=== PATIENT | male | born 1955 | race Caucasian/White ===

== ENCOUNTER 2017-05-08 10:13 | Emergency (ER) | payer BC, MEDICARE ==
[2017-05-08] MEDS ORDERED: Ondansetron 4 MG/2 ML SDV IVPUSH ONE (11:00)
[2017-05-08] MEDS ORDERED: Morphine 4 MG/ML Syringe IVPUSH ONE ×2 (11:00→13:51)
[2017-05-08] MEDS ORDERED: Sodium Chloride 0.9% 1,000 ML IV SCH (11:15)
--- NOTE | 2017-05-08 11:27 | EDM.PDOC ---
ED HPI GENERAL MEDICAL PROBLEM - General Stated Complaint: BACK PAIN Time Seen by Provider: 05/08/17 10:13 Source of Information: Reports: Patient, Family History Limitations: Reports: No Limitations - History of Present Illness INITIAL COMMENTS - FREE TEXT/NARRATIVE: 61 years old w m with chronic low back pain, came to the ed due to worsening of his low back pain. No stool or urine incontinence. No new trauma. No N/V/D or other acute medical issues at this time. Onset: Today Onset Date: 05/08/17 Onset Time: 05:00 Duration: Chronic, Getting Worse, Intermittent (acute) Location: Reports: Back Quality: Reports: Burning, Dull, Pressure, Throbbing Severity: Moderate Improves with: Reports: Cold Therapy, Immobilization Worsens with: Reports: Movement Associated Symptoms: Reports: No Other Symptoms back Pain Score (Numeric/FACES): 8 - Related Data Allergies Allergy/AdvReac Type Severity Reaction Status Date / Time amoxicillin [Amoxicillin] Allergy Diarrhea Verified 05/08/17 12:31 levofloxacin [From Levaquin] Allergy Headache Verified 05/08/17 12:31 NSAIDS (Non-Steroidal Allergy Cannot Verified 05/08/17 12:31 Anti-Inflamma Remember Home Meds: Home Meds Citalopram Hydrobromide [Celexa] 40 mg PO DAILY 08/18/13 [History] Metoprolol Tartrate [Lopressor] 100 mg PO BID 08/18/13 [History] Multivitamin [Multivitamins] 1 cap PO DAILY 08/18/13 [History] Zolpidem [Ambien] 10 mg PO BEDTIME PRN 08/18/13 [History] amLODIPine [Norvasc] 10 mg PO DAILY 08/18/13 [History] predniSONE [Prednisone] 5 mg PO DAILY 08/18/13 [History] Gabapentin [Neurontin] 600 mg PO TID 06/18/14 [History] Pantoprazole [ProTONIX] 40 mg PO DAILY 06/18/14 [History] Acetaminophen 650 mg PO Q4H PRN 04/10/15 [History] Albuterol Sulfate [Albuterol Sulfate HFA] 2 puff INH Q4H PRN 04/10/15 [History] Alendronate [Fosamax] 70 mg PO Q7D@0600 04/10/15 [History] Calcium Carbonate/Vitamin D3 [Calcium 500-Vit D3 200 Tablet] 1 tab PO BID [History] Gemfibrozil 600 mg PO BID 04/10/15 [History] Loperamide [Imodium] 4 mg PO TID PRN 04/10/15 [History] Potassium Chloride 20 meq PO DAILY 04/10/15 [History] Simvastatin [Zocor] 10 mg PO BEDTIME 04/10/15 [History] Tacrolimus [Prograf] 1 mg PO BEDTIME 04/10/15 [History] Tacrolimus [Prograf] 1.5 mg PO PCBREAKFAST 04/10/15 [History] Dexamethasone 4 mg PO Q6H #18 tab 05/08/17 [Rx] oxyCODONE HCl/Acetaminophen [Percocet 5-325 mg Tablet] 1 each PO Q6HR PRN #20 tablet 05/08/17 [Rx] oxyCODONE HCl/Acetaminophen [Percocet 7.5-325 mg Tablet] 1 each PO Q6HR PRN #20 tablet 05/08/17 [Rx] Past Medical History Other HEENT History: wears contacts Other Respiratory History: "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 Other Gastrointestinal History: upper gi bleed bleeding ulcer while in [place] Other Musculoskeletal History: partial knee in [place] 04/06/15 Other Hematologic History: port in left chest present since 2002 is flushed once a month port was not used for surgery Other Oncologic History: 2008 in remission in - Past Surgical History Other Male Surgeries/Procedures: kidney transplant in 2002 Other Musculoskeletal Surgeries/Procedures:: 04/06/15/ pt had partial knee replacement done to right knee Social & Family History - Tobacco Use Smoking Status *Q: Never Smoker Years of Tobacco use: 28 Used Tobacco, but Quit: Yes Month Tobacco Last Used: 10/2002 Second Hand Smoke Exposure: No - Alcohol Use Days Per Week of Alcohol Use: 3 Number of Drinks Per Day: 1 Total Drinks Per Week: 3 - Recreational Drug Use Recreational Drug Use: No ED ROS GENERAL - Review of Systems Review Of Systems: See Below Constitutional: Reports: No Symptoms HEENT: Reports: No Symptoms Respiratory: Reports: No Symptoms Cardiovascular: Reports: No Symptoms Endocrine: Reports: No Symptoms GI/Abdominal: Reports: No Symptoms : Reports: No Symptoms Musculoskeletal: Reports: Back Pain Skin: Reports: No Symptoms Neurological: Reports: No Symptoms Psychiatric: Reports: No Symptoms Hematologic/Lymphatic: Reports: No Symptoms Immunologic: Reports: No Symptoms ED EXAM, NEURO - Physical Exam Exam: See Below Exam Limited By: Physical Impairment General Appearance: Alert, WD/WN, Moderate Distress Eye Exam: Bilateral Eye: Normal Inspection Ears: Normal External Exam, Normal Canal Nose: Normal Inspection, Normal Mucosa Throat/Mouth: Normal Inspection, Normal Lips Head Exam: Atraumatic, Normocephalic Neck: Normal Inspection, Supple, Non-Tender, Full Range of Motion Respiratory/Chest: No Respiratory Distress, Lungs Clear, Normal Breath Sounds, No Accessory Muscle Use Cardiovascular: Normal Peripheral Pulses, Regular Rate, Rhythm, No Edema, No Gallop GI/Abdominal: Normal Bowel Sounds, Soft, Non-Tender, No Organomegaly (Male) Exam: Deferred Rectal (Males) Exam: Deferred Neurological: Alert, Normal Mood/Affect, Normal Dorsiflexion, CN II-XII Intact, Straight Leg Raise (L), Straight Leg Raise (R) Back Exam: Normal Inspection, Muscle Spasm, Paraspinal Tenderness, Vertebral Tenderness Extremities: Normal Inspection, Normal Range of Motion, Non-Tender, No Pedal Edema Psychiatric: Normal Affect, Normal Mood Skin Exam: Warm, Dry, Intact, Normal Color, No Rash Course - Vital Signs Text/Narrative:: 61 years old w m with chronic low back pain, came to the ed due to worsening of his low back pain. No stool or urine incontinence. No new trauma. No N/V/D or other acute medical issues at this time.\\ PE: Acute worsening of chronic low back pain. Imaging: MRI lumbar spine: Chronich deg l spine with L4/L5 stenosis. Imaging: Low back pain with L4/L5 stenosis Tx: & mg MS, Ice, Solu Medrol and percost Consultation: Dr. Dunaway, Neurosurgeon, [facility]: Dexametason Taper, Percocet, ICE and follow up uin 1 week Reexam: Improved Plan: D/C with instructions Last Recorded V/S: Last Vital Signs Temp 36.3 C 05/08/17 14:19 Pulse 71 05/08/17 17:30 Resp 16 05/08/17 14:19 BP 164/100 H 05/08/17 17:30 Pulse Ox 97 05/08/17 14:19 - Orders/Labs/Meds Orders: Active Orders 24 hr Category Date Time Status Strain Urine [RC] ASDIRECTED Care 05/08/17 14:31 Active Lumbar Spine Comp wo Cont [MR] Stat Exams 05/08/17 11:22 Taken Saline Lock Insert [OM.PC] Routine Oth 05/08/17 15:20 Ordered Labs: Laboratory Tests 05/08/17 Range/Units 13:50 Urine Color Yellow (YELLOW) Urine Appearance Clear (CLEAR) Urine pH 6.0 (5.0-6.5) Ur Specific Perry 1.015 (1.010-1.025) Urine Protein Negative (NEGATIVE) mg/dL Urine Glucose (UA) Normal (NEGATIVE) mg/dL Urine Ketones Negative (NEGATIVE) mg/dL Urine Occult Blood Negative (NEGATIVE) Urine Nitrite Negative (NEGATIVE) Urine Bilirubin Negative (NEGATIVE) Urine Urobilinogen Normal (NEGATIVE) mg/dL Ur Leukocyte Esterase Negative (NEGATIVE) Urine RBC 0-5 (0) Urine WBC 0-5 (0) Ur Squamous Epith Cells Occasional (NS,R,O) Urine Bacteria Rare H (NS) Meds: Medications Discontinued Medications Generic Name Dose Route Start Last Admin Trade Name Pardeepq PRN Reason Stop Dose Admin Dexamethasone 4 mg 05/08/17 17:14 05/08/17 17:24 Dexamethasone PO 05/08/17 17:15 4 mg ONETIME ONE Administration Sodium Chloride 1,000 mls @ 125 mls/hr 05/08/17 11:15 Normal Saline IV ASDIRECTED MEGAN Methylprednisolone Sodium Succinate 125 mg 05/08/17 15:05 05/08/17 15:39 Solu-Medrol IVPUSH 05/08/17 15:06 125 mg ONETIME ONE Administration Morphine Sulfate 4 mg 05/08/17 11:00 05/08/17 11:08 Morphine IVPUSH 05/08/17 11:01 4 mg ONETIME ONE Administration Morphine Sulfate 4 mg 05/08/17 13:51 05/08/17 14:55 Morphine IVPUSH 05/08/17 13:52 Not Given ONETIME ONE Morphine Sulfate 3 mg 05/08/17 13:59 05/08/17 14:13 Morphine IM 05/08/17 14:00 3 mg ONETIME STA Administration Ondansetron HCl 8 mg 05/08/17 11:00 05/08/17 11:08 Zofran IVPUSH 05/08/17 11:01 8 mg ONETIME ONE Administration Oxycodone/Acetaminophen 1 tab 05/08/17 17:13 05/08/17 17:25 Percocet 325-5 Mg PO 05/08/17 17:14 1 tab ONETIME ONE Administration Sodium Chloride 10 ml 05/08/17 14:16 05/08/17 14:18 Saline Flush FLUSH 10 ml ASDIRECTED PRN Administration flush Sodium Chloride 10 ml 05/08/17 15:20 05/08/17 15:40 Saline Flush FLUSH 10 ml ASDIRECTED PRN Administration Keep Vein Open Departure - Departure Time of Disposition: 17:16 Disposition: Home, Self-Care 01 Condition: Good Clinical Impression: Chronic low back pain with bilateral sciatica Qualifiers: Back pain laterality: bilateral Qualified Code(s): M54.42 - Lumbago with sciatica, left side - Discharge Information Prescriptions: oxyCODONE HCl/Acetaminophen [Percocet 7.5-325 mg Tablet] 1 each PO Q6HR PRN #20 tablet PRN Reason: severe pain oxyCODONE HCl/Acetaminophen [Percocet 5-325 mg Tablet] 1 each PO Q6HR PRN #20 tablet PRN Reason: severe pain Dexamethasone 4 mg PO Q6H #18 tab Referrals: Rico Liz MD [Primary Care Provider] - Forms: ED Department Discharge, ED Return to Work/School Form Additional Instructions: Please apply ice to lower back, please take the Dexametasone, Percocet as recommended, please apply ice to lower back, please f/u with your Neurosurgeon in 1 week, please come back if your symptoms get worse acutely. - My Orders Last 24 Hours: My Active Orders 05/08/17 11:22 Lumbar Spine Comp wo Cont [MR] Stat 05/08/17 14:31 Strain Urine [RC] ASDIRECTED 05/08/17 15:20 Saline Lock Insert [OM.PC] Routine - Assessment/Plan Last 24 Hours: My Active Orders 05/08/17 11:22 Lumbar Spine Comp wo Cont [MR] Stat 05/08/17 14:31 Strain Urine [RC] ASDIRECTED 05/08/17 15:20 Saline Lock Insert [OM.PC] Routine
[2017-05-08] MEDS ORDERED: Morphine 4 MG/ML Syringe IM STA (13:59)
[2017-05-08] MEDS ORDERED: Sodium Chloride 0.9% 10 ML Syringe FLUSH PRN ×2 (14:16→15:20)
[2017-05-08] MEDS ORDERED: methylPREDNISolone Sodium Succinate 125 MG/2 ML SDV IVPUSH ONE (15:05)
[2017-05-08] MEDS ORDERED: Acetaminophen/oxyCODONE 325-5 MG Tab PO ONE (17:13)
[2017-05-08] MEDS ORDERED: Dexamethasone 4 MG Tab PO ONE (17:14)
[2017-05-08 17:35] VITALS: BP 164/100
== END 2017-05-08 17:30 | disposition home or self-care (01) ==
LOC: FB.ED 10:13
DX: M54.42 Lumbago with sciatica, left side (principal); Z88.1 Allergy status to other antibiotic agents; Z88.8 Allergy status to other drugs, medicaments and biological substances; Z79.899 Other long term (current) drug therapy; Z96.659 Presence of unspecified artificial knee joint
CPT/HCPCS: 72148; 81001; 96374; 96375; 96376; 99285; A9270; J2270; J2405; J2930; J7050; J8540; 99284

== ENCOUNTER 2018-03-09 06:48 | Day surgery (SDC) | payer BC, MEDICARE ==
[2018-03-09] MEDS ORDERED: Lactated Ringers 1,000 ML IV SCH (07:15)
[2018-03-09] MEDS ORDERED: Propofol 200 MG/20 ML SDV IV ONE (08:45)
[2018-03-09] MEDS ORDERED: Glucagon,Human Recombinant 1 MG Vial IVPUSH ONE (08:45)
--- NOTE | 2018-03-09 09:17 | PCM.OPNOTE ---
- General Post-Op/Procedure Note Date of Surgery/Procedure: 03/09/18 Operative Procedure(s): c scope with bx Findings: transverse x2, descending and rectal polyps Pre Op Diagnosis: hx of colon polyps Post-Op Diagnosis: transverse x2, descending and rectal polyps Anesthesia Technique: MAC Primary Surgeon: Crow Culp Anesthesia Provider: Erich Mcmanus Pathology: transverse x2, descending and rectal polyps Complications: None Condition: Good Free Text/Narrative:: see dictation #[id number]
--- NOTE | 2018-03-09 09:50 | PREOP ---
ADMISSION DATE: 03/09/2018 CHIEF COMPLAINT: History of adenomatous polyps. HISTORY OF PRESENT ILLNESS: This is a gentleman who presents for a followup colonoscopy. Last scope was 5 years ago. He had some adenomatous polyps removed. He is now due for a followup exam. He is currently without complaints. Denies any history of change in bowel habits, weight loss, etc. SOCIAL HISTORY: The patient did smoke, stopped in 2002. Does dip on occasion. Does have approximately 4 cans of beer a week. FAMILY HISTORY: Significant for heart disease, hypertension, and dementia. PAST MEDICAL HISTORY: Significant for the following history of deep vein thrombosis, breast mass, history of diarrhea, peripheral neuropathy, renal failure. He is a kidney transplant recipient. He has a history of lumbar degenerative disk disease, microscopic polyangiitis, myopia, cataract, post transplant lymphoproliferative disorder. MEDICATIONS: Include: 1. Fosamax 70 mg weekly. 2. Zocor 10 mg at bedtime. 3. Multivitamin at night. 4. Calcium carbonate one tablet 2 times a day. 5. Vitamin D. 6. In addition, he takes Protonix 40 mg daily. 7. Prednisone 5 mg daily. 8. Prograf 1 mg b.i.d. 9. Celexa 40 mg once a day. 10.Lopressor 100 mg as needed. 11.Norvasc 1 daily. 12.Imodium as needed. 13.Ambien 10 mg. 14.Lopid 600 mg. 15.Neurontin 300 mg. 16.Catapres 0.1 mg. 17.Flexeril 10 mg. ALLERGIES: He is allergic to amoxicillin, Levaquin, and NSAIDs. PAST SURGICAL HISTORY: Significant for AV fistula, right knee arthroscopy, bronchoscopy x4. He is status post inguinal hernia repair, left shoulder replacement, kidney transplant, exploratory laparotomy, thoracotomy, and a right total knee. REVIEW OF SYSTEMS: He denies any cultural, HEENT, respiratory, cardiovascular, gastrointestinal. PHYSICAL EXAMINATION: GENERAL: This is a well-developed, well-nourished white male, appearing in no acute distress. HEENT: Grossly within normal limits. LUNGS: Clear to auscultation. HEART: Had a regular rate and rhythm. ABDOMEN: Soft, nontender. ASSESSMENT: Personal history of colon polyps. PLAN: Colonoscopy. Procedure and risks explained to the patient to include bleeding, infection, possible perforation. The patient expresses understanding and asked us to proceed. /[id number] /SILVIAL
[2018-03-09] MEDS ORDERED: Heparin Sodium 10 Units/ML 5 ML Syringe FLUSH PRN (09:52)
[2018-03-09] MEDS ORDERED: Sodium Chloride 0.9% 10 ML Syringe FLUSH PRN (09:54)
--- NOTE | 2018-03-09 09:58 | OR ---
DATE OF OPERATION: 03/09/2018 SURGEON: Crow Culp MD PROCEDURES PERFORMED: Colonoscopy with cold forceps biopsy. PREOPERATIVE DIAGNOSIS: Personal history of colon polyps. POSTOPERATIVE DIAGNOSIS: Transverse colon polyp x2, descending colon polyp, and rectal polyp. INDICATIONS FOR PROCEDURE: This is a 62-year-old white male who presents for a colonoscopy. He was offered and accepted same. DESCRIPTION OF OPERATION: After an excellent IV sedation was administered, digital rectal exam was performed. No marked abnormality was noted. The flexible colonoscope was inserted and advanced to the cecum. The prep was okay. There were some areas that we had to irrigate, but we were able to get a good view. The following findings were noted. Ascending colon was unremarkable. Transverse colon, 2 small polyps, biopsied and submitted in one container. Descending colon, single polyp, biopsied and submitted in one container. Sigmoid, unremarkable. Rectum, small polyp, biopsied and submitted in one container. Colon was deflated as the scope was removed. The patient tolerated the procedure well. Results by letter. /[id number] LOBO/SERJIO SANCHEZ
[2018-03-09 12:13] VITALS: BP 135/89
== END 2018-03-09 10:36 | disposition home or self-care (01) ==
LOC: FB.SDS 06:48
PROVIDERS: ATTEND Surgery
DX: Z12.11 Encounter for screening for malignant neoplasm of colon (principal); D12.3 Benign neoplasm of transverse colon; D12.4 Benign neoplasm of descending colon; K62.1 Rectal polyp; N19 Unspecified kidney failure; Z94.0 Kidney transplant status; E78.5 Hyperlipidemia, unspecified; Z87.891 Personal history of nicotine dependence; Z86.010 Personal history of colon polyps; Z86.711 Personal history of pulmonary embolism; Z79.899 Other long term (current) drug therapy; Z88.0 Allergy status to penicillin; Z88.6 Allergy status to analgesic agent; Z88.1 Allergy status to other antibiotic agents
CPT/HCPCS: 00812; 45380; 88305; J1610; J1642; J2704; J7050; J7120

== ENCOUNTER 2021-02-19 12:42 | Inpatient (IN) | payer BC, MEDICARE ==
[2021-02-19 14:31] LABS: PH VENOUS,POC 7.37 pH Units (7.32-7.43)
[2021-02-19 14:32] LABS: BASE EXCESS VENOUS,POC 2 mmol/L (-2-3); HCO3 VENOUS,POC 27 mmol/L (21-29); PCO2 VENOUS,POC 46 mmHg (41-51)
--- NOTE | 2021-02-19 15:32 | EDM.PDOC ---
ED HPI GENERAL MEDICAL PROBLEM - General Chief Complaint: Drug or Alcohol Abuse Stated Complaint: ??? 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 h/o double pneumonia 2002 with scarring of lungs, went to [place], has been on O2 2 l/min at night every since, rarely uses oxygen during the day went to walk-in, noted to have PO 88-89% on RA which was new, HR 98-105, BP up 20 points given 1 liter NS, then send to ED for further w/u and admission denies prior CV issues, no MIs, no stents, however BMI has been inc'd in past CxR 2v is neg on prelim ED read BP inc'd here vital signs have remained stable, states he wants detox pt with PO 96% on 2 l/min here, says he feels better on O2, PO 92% here in ED on RA - Related Data Allergies Allergy/AdvReac Type Severity Reaction Status Date / Time amoxicillin [Amoxicillin] AdvReac Diarrhea Verified 02/19/21 14:59 levofloxacin [From Levaquin] AdvReac Headache Verified 03/09/18 07:49 NSAIDS (Non-Steroidal AdvReac Cannot Verified 02/19/21 14:59 Anti-Inflamma Remember Home Meds: Home Meds Citalopram Hydrobromide [Celexa] 40 mg PO DAILY 08/18/13 [History] Metoprolol Tartrate [Lopressor] 100 mg PO BID 08/18/13 [History] Multivitamin [Multivitamins] 1 cap PO DAILY 08/18/13 [History] Zolpidem [Ambien] 10 mg PO BEDTIME PRN 08/18/13 [History] amLODIPine [Norvasc] 10 mg PO DAILY 08/18/13 [History] predniSONE [Prednisone] 5 mg PO DAILY 11/10/13 [History] Gabapentin [Neurontin] 600 mg PO TID 06/18/14 [History] Pantoprazole [ProTONIX] 40 mg PO DAILY 06/18/14 [History] Acetaminophen 650 mg PO Q4H PRN 04/10/15 [History] Albuterol Sulfate [Albuterol Sulfate HFA] 2 puff INH Q4H PRN 04/10/15 [History] Alendronate [Fosamax] 70 mg PO Q7D@0600 04/10/15 [History] Calcium Carbonate/Vitamin D3 [Calcium 500-Vit D3 200 Tablet] 1 tab PO BID 04/10/15 [History] Gemfibrozil 600 mg PO BIDAC 04/10/15 [History] Loperamide [Imodium] 4 mg PO TID PRN 04/10/15 [History] Potassium Chloride 20 meq PO DAILY 04/10/15 [History] Simvastatin [Zocor] 10 mg PO BEDTIME 04/10/15 [History] Tacrolimus [Prograf] 1 mg PO BID 04/10/15 [History] cloNIDine [Catapres] 0.1 mg PO TID 01/15/18 [History] metroNIDAZOLE [Metrogel] 1 applic TP BID PRN 01/15/18 [History] Cholecalciferol (Vitamin D3) [Vitamin D3] 1,000 units PO DAILY 03/08/18 [Hist ory] Cyclobenzaprine [Flexeril] 10 mg PO BEDTIME 02/19/21 [History] Fluticasone Propionate [Flonase] 50 mcg NS 02/19/21 [History] fluorouraciL [Efudex 5% Cream] 40 gm .XX ASDIRECTED 02/19/21 [History] traMADol [Ultram] 50 mg PO Q6H PRN 02/19/21 [History] Past Medical History HEENT History: Reports: Cataract, Impaired Vision Other HEENT History: wears contacts. CHRIONIC DRY EYES, BILATERAL CATARACT, ORBITAL LESION, PINGUECULA Cardiovascular History: Reports: Aneurysm, Arrhythmia, Blood Clots/VTE/DVT, High Cholesterol, Hypertension, Other (See Below) Other Cardiovascular History: ARTERITIS. 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 ELEVATED DIAPHRAM Other Gastrointestinal History: upper gi bleed bleeding ulcer while in [place] Genitourinary History: Reports: Renal Disease Other Genitourinary History: KIDNEY TRANSPLANT Musculoskeletal History: Reports: Arthritis, Back Pain, Chronic, Fracture, Other (See Below) Other Musculoskeletal History: partial knee in [place] 04/06/15 RIGHT. LUMBAR DEGENERATIVE DISK DISEASE Neurological History: Reports: Headaches, Chronic, Neuropathy, Peripheral Psychiatric History: Reports: Depression Hematologic History: Reports: Other (See Below) Other Hematologic History: port in left chest present since 2002 is flushed once a month port was not used for surgery. 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 Oncologic (Cancer) History: Reports: Non-Hodgkin's Lymphoma Other Oncologic History: 2008 in remission in - Past Surgical History Respiratory Surgical History: Reports: Thoracotomy Other Respiratory Surgeries/Procedures: BROCHOSCOPIES X4 GI Surgical History: Reports: Hernia Repair/Other Other GI Surgeries/Procedures: EXPLORATORY LAPAROTOMY 2006, 2002 AND 2003 HERNIORRAPHIES Other Male Surgeries/Procedures: kidney transplant in 2002 Neurological Surgical History: Reports: Thoracic Spine Musculoskeletal Surgical History: Reports: Arthroscopic Knee, Knee Replacement, Shoulder Surgery, Other (See Below) Other Musculoskeletal Surgeries/Procedures:: 04/06/15/ pt had partial knee replacement done to right knee. LEFT KNEE ARTHROSCOPY 2007 RIGHT IN 2012. LEFT SHOULDER REPLACEMENT 2009. THROACIC VERTEBRAL FX 04/2012, BACK SURGERY 2006 Social & Family History - Caffeine Use Caffeine Use: Reports: Soda ED ROS GENERAL - Review of Systems Review Of Systems: See Below Constitutional: Reports: No Symptoms HEENT: Reports: No Symptoms Respiratory: Reports: No Symptoms Cardiovascular: Reports: No Symptoms Endocrine: Reports: No Symptoms GI/Abdominal: Reports: No Symptoms : Reports: No Symptoms Musculoskeletal: Reports: No Symptoms Skin: Reports: No Symptoms Neurological: Reports: Weakness, Other (shakes) Psychiatric: Reports: No Symptoms Hematologic/Lymphatic: Reports: No Symptoms Immunologic: Reports: No Symptoms ED EXAM, GENERAL - Physical Exam Exam: See Below Exam Limited By: No Limitations General Appearance: Alert, WD/WN, No Apparent Distress, Other (no overt DTs) Nose: Normal Inspection Throat/Mouth: Normal Inspection, Normal Voice, No Airway Compromise Head: Atraumatic Neck: Normal Inspection, Supple, Non-Tender. No: Lymphadenopathy (R), Lymphadenopathy (L) Respiratory/Chest: No Respiratory Distress, Lungs Clear, Normal Breath Sounds, Chest Non-Tender Cardiovascular: Regular Rate, Rhythm, No Edema, Other (2/6 HOLLY at LSB) GI/Abdominal: Soft, Non-Tender, No Distention Back Exam: Normal Inspection, Full Range of Motion, NT Extremities: Normal Inspection, Normal Range of Motion, Non-Tender Neurological: Alert, Oriented, CN II-XII Intact, Normal Cognition, No Motor/Sensory Deficits Psychiatric: Normal Affect Skin Exam: Warm, Dry, Intact, Normal Color, No Rash Lymphatic: No Adenopathy #1 Interpretation EKG Date: 02/19/21 Time: 14:00 Rate (Beats/Min): 102 P-Wave: Present QRS: Normal ST-T: Normal QT: Normal Comparison: Other: (last EKG 2014, no LVH then by voltage criteria) EKG Interpretation Comments: ST, rate 102, LVH by voltage criteria, no acute ST changes, no acitve ischemia Course - Vital Signs Last Recorded V/S: Last Vital Signs Temp 36.8 C 02/19/21 14:29 Pulse 102 H 02/19/21 14:29 Resp 20 02/19/21 14:29 BP 153/78 H 02/19/21 14:29 Pulse Ox 96 02/19/21 14:29 - Orders/Labs/Meds Orders: Active Orders 24 hr Category Date Time Status EKG Documentation Completion [RC] ASDIRECTED Care 02/19/21 13:48 Active Chest 2V [CR] Stat Exams 02/19/21 13:47 Taken EKG 12 Lead [EK] Routine Ther 02/19/21 13:47 Ordered Labs: Laboratory Tests 02/19/21 02/19/21 02/19/21 Range/Units 13:40 14:05 14:05 PT 10.5 (9.0-11.1) sec INR 0.97 L (1.00-1.24) POC VBG pH (7.32-7.43) pH Units POC VBG pCO2 (41-51) mmHg POC VBG HCO3 (21-29) mmol/L VBG Base Excess (-2-3) mmol/L O2 Delivery Device Troponin I 13.8 (4.0-60.3) pg/mL C-Reactive Protein 0.3 L (0.5-0.9) mg/dL NT-Pro-B Natriuret Pep 475 H (<=125) pg/mL TSH, Ultra Sensitive 0.53 (0.36-3.74) IU/mL Urine Color Yellow (YELLOW) Urine Appearance Clear (CLEAR) Urine pH 7.0 H (5.0-6.5) Ur Specific Wray 1.005 L (1.010-1.025) Urine Protein Negative (NEGATIVE) mg/dL Urine Glucose (UA) Normal (NORMAL) mg/dL Urine Ketones Negative (NEGATIVE) mg/dL Urine Occult Blood Negative (NEGATIVE) Urine Nitrite Negative (NEGATIVE) Urine Bilirubin Negative (NEGATIVE) Urine Urobilinogen Normal (NEGATIVE) mg/dL Ur Leukocyte Esterase Negative (NEGATIVE) Urine RBC Not seen (0-5) Urine WBC 0-5 (0-5) Ur Squamous Epith Cells Rare (NS,R,O) Urine Bacteria Rare H (NS) SARS-CoV-2 RNA (ANAYA) (NEGATIVE) 02/19/21 02/19/21 Range/Units 14:05 14:15 PT (9.0-11.1) sec INR (1.00-1.24) POC VBG pH 7.37 (7.32-7.43) pH Units POC VBG pCO2 46 (41-51) mmHg POC VBG HCO3 27 (21-29) mmol/L VBG Base Excess 2 (-2-3) mmol/L O2 Delivery Device Nasal cannula Troponin I (4.0-60.3) pg/mL C-Reactive Protein (0.5-0.9) mg/dL NT-Pro-B Natriuret Pep (<=125) pg/mL TSH, Ultra Sensitive (0.36-3.74) IU/mL Urine Color (YELLOW) Urine Appearance (CLEAR) Urine pH (5.0-6.5) Ur Specific Wray (1.010-1.025) Urine Protein (NEGATIVE) mg/dL Urine Glucose (UA) (NORMAL) mg/dL Urine Ketones (NEGATIVE) mg/dL Urine Occult Blood (NEGATIVE) Urine Nitrite (NEGATIVE) Urine Bilirubin (NEGATIVE) Urine Urobilinogen (NEGATIVE) mg/dL Ur Leukocyte Esterase (NEGATIVE) Urine RBC (0-5) Urine WBC (0-5) Ur Squamous Epith Cells (NS,R,O) Urine Bacteria (NS) SARS-CoV-2 RNA (ANAYA) Negative (NEGATIVE) - Re-Assessments/Exams Free Text/Narrative Re-Assessment/Exam: 02/19/21 16:18 pt given a liter of IVF at walk-in clinic has been stable here, no visible tremors, HR 105 and SBP 150 here, both up slightly 02/19/21 16:27 pt without overt DTs here in ED, has been pleasant and cooperative, states he wants alc tx no explanation for PO 88% on RA at walk-in better, CxR 2v on prelim ED view is neg for infiltrate or effusion (port visible, has screw in L shoulder) BNP inc'd at 475, of uncertain clinical sig other labs show no evidence of active infection of lungs or urine d/w Dr Salcedo who accepted him in admission Departure - Departure Time of Disposition: 16:28 Disposition: Admitted As Inpatient 67 Condition: Fair Clinical Impression: Weakness, Shakiness, Alcohol abuse, Tachycardia, Elevated blood pressure reading, Left ventricular hypertrophy by electrocardiogram, Elevated brain natriuretic peptide (BNP) level - Discharge Information *PRESCRIPTION DRUG MONITORING PROGRAM REVIEWED*: Not Applicable *COPY OF PRESCRIPTION DRUG MONITORING REPORT IN PATIENT MIGDALIA: Not Applicable Referrals: Rico Liz MD [Primary Care Provider] - Forms: ED Department Discharge Sepsis Event Note (ED) - Evaluation Sepsis Screening Result: No Definite Risk - Focused Exam Vital Signs: Vital Signs Temp Pulse Resp BP Pulse Ox 02/19/21 14:29 36.8 C 102 H 20 153/78 H 96 - My Orders Last 24 Hours: My Active Orders 02/19/21 13:47 Chest 2V [CR] Stat EKG 12 Lead [EK] Routine 02/19/21 13:48 EKG Documentation Completion [RC] ASDIRECTED - Assessment/Plan Last 24 Hours: My Active Orders 02/19/21 13:47 Chest 2V [CR] Stat EKG 12 Lead [EK] Routine 02/19/21 13:48 EKG Documentation Completion [RC] ASDIRECTED
[2021-02-19] MEDS ORDERED: Bisacodyl 5 MG Tab PO PRN (16:34)
[2021-02-19] MEDS ORDERED: Ondansetron 4 MG/2 ML SDV IV PRN (16:34)
[2021-02-19] MEDS ORDERED: Magnesium Hydroxide 400 MG/5 ML Susp 30 ML Cup PO PRN (16:34)
[2021-02-19] MEDS ORDERED: traMADol 50 MG Tab PO PRN (16:36)
[2021-02-19] MEDS ORDERED: Albuterol 8 GM Inhaler INH PRN (16:36)
--- NOTE | 2021-02-19 17:04 | CR ---
CHEST TWO VIEWS 9588 INDICATION: Short of breath. New hypoxia. PA and lateral views of the chest 02/19/2021 were compared with 07/15/2015 and 05/02/2014 revealing a [id number] in place as previously in satisfactory position. Post arthroplasty left shoulder again noted. The heart did not appear enlarged. The aorta is tortuous. Bridging hyperostotic changes with a flowing appearance suggest DISH. Compression fracture with vertebroplasty noted at what appears to be L1, present previously with no new compression fracture suggested. Somewhat flattened diaphragm leaves with hyperaeration and slightly prominent AP diameter raising question of COPD. Previously elevated left hemidiaphragm is relatively normal in position at this time with no definite active infiltrate or effusion identified. No recurrent lymphomatous change is suggested. IMPRESSION: 1. No acute process. 2. Probable COPD. 3. ASD aorta. 4. Probable DISH. MTDD
[2021-02-19] MEDS ORDERED: LORazepam 2 MG/ML SDV IVPUSH PRN ×2 (17:29→19:15)
[2021-02-19] MEDS: Sodium Chloride 0.9% 10 ML Syringe FLUSH PRN ×2 (17:52→19:02)
[2021-02-19] MEDS ORDERED: Zolpidem 10 MG Tab PO PRN (17:53)
[2021-02-19] MEDS ORDERED: Loperamide 2 MG Cap PO PRN (17:53)
[2021-02-19] MEDS ORDERED: Acetaminophen 325 MG Tab PO PRN (17:53)
[2021-02-19] MEDS ORDERED: METRONIDAZOLE TP PRN (17:53)
--- NOTE | 2021-02-19 17:58 | PCM.HP.2 ---
H&P History of Present Illness - General Date of Service: 02/19/21 Admit Problem/Dx: Admission Diagnosis/Problem Admission Diagnosis/Problem Weakness Source of Information: Patient History Limitations: Reports: No Limitations - History of Present Illness Initial Comments - Free Text/Narative: This is a 65-year-old male patient that presented to the urgent care [place] because he was drinking too much and he felt like he was going to withdraw. He states he normally drinks alcohol on weekends. But for the last 2 months he's been drinking at least 12 beers every day. He stopped yesterday started getting shaky. He says he wants to get off alcohol and get some help. He denies recreational drug use and he is not a smoker. He's never been in treatment before. He denies chest pain or shortness of breath, fevers or chills - Related Data Allergies/Adverse Reactions: Allergies Allergy/AdvReac Type Severity Reaction Status Date / Time amoxicillin [Amoxicillin] AdvReac Diarrhea Verified 02/19/21 14:59 levofloxacin [From Levaquin] AdvReac Headache Verified 03/09/18 07:49 NSAIDS (Non-Steroidal AdvReac Cannot Verified 02/19/21 14:59 Anti-Inflamma Remember Home Medications: Home Meds Citalopram Hydrobromide [Celexa] 40 mg PO DAILY 08/18/13 [History] Metoprolol Tartrate [Lopressor] 100 mg PO BID 08/18/13 [History] Multivitamin [Multivitamins] 1 cap PO DAILY 08/18/13 [History] Zolpidem [Ambien] 10 mg PO BEDTIME PRN 08/18/13 [History] amLODIPine [Norvasc] 10 mg PO DAILY 08/18/13 [History] predniSONE [Prednisone] 5 mg PO DAILY 08/18/13 [History] Gabapentin [Neurontin] 600 mg PO TID 06/18/14 [History] Pantoprazole [ProTONIX] 40 mg PO DAILY 06/18/14 [History] Acetaminophen 650 mg PO Q4H PRN 04/10/15 [History] Albuterol Sulfate [Albuterol Sulfate HFA] 2 puff INH Q4H PRN 04/10/15 [History] Alendronate [Fosamax] 70 mg PO Q7D@0600 04/10/15 [History] Calcium Carbonate/Vitamin D3 [Calcium 500-Vit D3 200 Tablet] 1 tab PO BID 04/10/15 [History] Gemfibrozil 600 mg PO BIDAC 04/10/15 [History] Loperamide [Imodium] 4 mg PO TID PRN 04/10/15 [History] Potassium Chloride 20 meq PO DAILY 04/10/15 [History] Simvastatin [Zocor] 10 mg PO BEDTIME 04/10/15 [History] Tacrolimus [Prograf] 1 mg PO BID 04/10/15 [History] cloNIDine [Catapres] 0.1 mg PO TID 01/15/18 [History] metroNIDAZOLE [Metrogel] 1 applic TP BID PRN 01/15/18 [History] Cholecalciferol (Vitamin D3) [Vitamin D3] 1,000 units PO DAILY 03/08/18 [History] Cyclobenzaprine [Flexeril] 10 mg PO BEDTIME 02/19/21 [History] Fluticasone Propionate [Flonase] 1 spray NASBOTH BID 02/19/21 [History] fluorouraciL [Efudex 5% Cream] 40 gm .XX ASDIRECTED 02/19/21 [History] traMADol [Ultram] 50 mg PO Q6H PRN 02/19/21 [History] Past Medical History HEENT History: Reports: Cataract, Impaired Vision Other HEENT History: wears contacts. CHRIONIC DRY EYES, BILATERAL CATARACT, ORBITAL LESION, PINGUECULA Cardiovascular History: Reports: Aneurysm, Arrhythmia, Blood Clots/VTE/DVT, High Cholesterol, Hypertension, Other (See Below) Other Cardiovascular History: ARTERITIS. 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 ELEVATED DIAPHRAM Other Gastrointestinal History: upper gi bleed bleeding ulcer while in [place] Genitourinary History: Reports: Renal Disease Other Genitourinary History: KIDNEY TRANSPLANT Musculoskeletal History: Reports: Arthritis, Back Pain, Chronic, Fracture, Other (See Below) Other Musculoskeletal History: partial knee in [place] 04/06/15 RIGHT. LUMBAR DEGENERATIVE DISK DISEASE Neurological History: Reports: Headaches, Chronic, Neuropathy, Peripheral Psychiatric History: Reports: Depression Hematologic History: Reports: Other (See Below) Other Hematologic History: port in left chest present since 2002 is flushed once a month port was not used for surgery. 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 Oncologic (Cancer) History: Reports: Non-Hodgkin's Lymphoma Other Oncologic History: 2008 in remission in - Past Surgical History Respiratory Surgical History: Reports: Thoracotomy Other Respiratory Surgeries/Procedures: BROCHOSCOPIES X4 GI Surgical History: Reports: Hernia Repair/Other Other GI Surgeries/Procedures: EXPLORATORY LAPAROTOMY 2006, 2002 AND 2003 HERNIORRAPHIES Other Male Surgeries/Procedures: kidney transplant in 2002 Neurological Surgical History: Reports: Thoracic Spine Musculoskeletal Surgical History: Reports: Arthroscopic Knee, Knee Replacement, Shoulder Surgery, Other (See Below) Other Musculoskeletal Surgeries/Procedures:: 04/06/15/ had partial knee replacement done to right knee. LEFT KNEE ARTHROSCOPY 2008 RIGHT IN 2012. LEFT SHOULDER REPLACEMENT 2009. THROACIC VERTEBRAL FX 04/2012, BACK SURGERY 2005 Social & Family History - Tobacco Use Tobacco Use Status *Q: Never Tobacco User Second Hand Smoke Exposure: No - Caffeine Use Caffeine Use: Reports: None - Alcohol Use Days Per Week of Alcohol Use: 7 Number of Drinks Per Day: 12 Total Drinks Per Week: 84 Date of Last Drink: 02/18/21 Time of Last Drink: 16:30 - Recreational Drug Use Recreational Drug Use: No H&P Review of Systems - Review of Systems: Review Of Systems: See Below General: Reports: Weakness HEENT: Reports: No Symptoms Pulmonary: Reports: No Symptoms Cardiovascular: Reports: No Symptoms Gastrointestinal: Reports: No Symptoms Genitourinary: Reports: No Symptoms Musculoskeletal: Reports: No Symptoms Skin: Reports: No Symptoms Psychiatric: Reports: No Symptoms Neurological: Reports: Tremors Hematologic/Lymphatic: Reports: No Symptoms Immunologic: Reports: No Symptoms Exam - Exam Exam: See Below - Vital Signs Vital Signs: Last Vital Signs Temp 98.3 F 02/19/21 14:29 Pulse 102 H 02/19/21 14:29 Resp 20 02/19/21 14:29 BP 153/78 H 02/19/21 14:29 Pulse Ox 96 02/19/21 14:29 Weight: 204 lb 8 oz - Exam General: Alert, Oriented, Cooperative HEENT: PERRLA, Hearing Intact, Posterior Pharynx Clear, TMs Clear Neck: Supple, Trachea Midline Lungs: Clear to Auscultation, Normal Respiratory Effort Cardiovascular: Regular Rate, Regular Rhythm, Tachycardia. No: Systolic Murmur GI/Abdominal Exam: Normal Bowel Sounds, Soft, Non-Tender, No Distention Extremities: Normal Inspection, Normal Range of Motion, Non-Tender, No Pedal Edema Neuro Extensive - Mental Status: Alert, Oriented x3, Normal Cognition Psychiatric: Alert, Anxious - Patient Data Lab Results Last 24 hrs: Laboratory Results - last 24 hr 02/19/21 02/19/21 02/19/21 Range/Units 13:40 14:05 14:05 PT 10.5 (9.0-11.1) sec INR 0.97 L (1.00-1.24) POC VBG pH (7.32-7.43) pH Units POC VBG pCO2 (41-51) mmHg POC VBG HCO3 (21-29) mmol/L VBG Base Excess (-2-3) mmol/L O2 Delivery Device Troponin I 13.8 (4.0-60.3) pg/mL C-Reactive Protein 0.3 L (0.5-0.9) mg/dL NT-Pro-B Natriuret Pep 475 H (<=125) pg/mL TSH, Ultra Sensitive 0.53 (0.36-3.74) IU/mL Urine Color Yellow (YELLOW) Urine Appearance Clear (CLEAR) Urine pH 7.0 H (5.0-6.5) Ur Specific [place] 1.005 L (1.010-1.025) Urine Protein Negative (NEGATIVE) mg/dL Urine Glucose (UA) Normal (NORMAL) mg/dL Urine Ketones Negative (NEGATIVE) mg/dL Urine Occult Blood Negative (NEGATIVE) Urine Nitrite Negative (NEGATIVE) Urine Bilirubin Negative (NEGATIVE) Urine Urobilinogen Normal (NEGATIVE) mg/dL Ur Leukocyte Esterase Negative (NEGATIVE) Urine RBC Not seen (0-5) Urine WBC 0-5 (0-5) Ur Squamous Epith Cells Rare (NS,R,O) Urine Bacteria Rare H (NS) SARS-CoV-2 RNA (ANAYA) (NEGATIVE) 02/19/21 02/19/21 Range/Units 14:05 14:15 PT (9.0-11.1) sec INR (1.00-1.24) POC VBG pH 7.37 (7.32-7.43) pH Units POC VBG pCO2 46 (41-51) mmHg POC VBG HCO3 27 (21-29) mmol/L VBG Base Excess 2 (-2-3) mmol/L O2 Delivery Device Nasal cannula Troponin I (4.0-60.3) pg/mL C-Reactive Protein (0.5-0.9) mg/dL NT-Pro-B Natriuret Pep (<=125) pg/mL TSH, Ultra Sensitive (0.36-3.74) IU/mL Urine Color (YELLOW) Urine Appearance (CLEAR) Urine pH (5.0-6.5) Ur Specific [place] (1.010-1.025) Urine Protein (NEGATIVE) mg/dL Urine Glucose (UA) (NORMAL) mg/dL Urine Ketones (NEGATIVE) mg/dL Urine Occult Blood (NEGATIVE) Urine Nitrite (NEGATIVE) Urine Bilirubin (NEGATIVE) Urine Urobilinogen (NEGATIVE) mg/dL Ur Leukocyte Esterase (NEGATIVE) Urine RBC (0-5) Urine WBC (0-5) Ur Squamous Epith Cells (NS,R,O) Urine Bacteria (NS) SARS-CoV-2 RNA (ANAYA) Negative (NEGATIVE) Sepsis Event Note - Evaluation Sepsis Screening Result: No Definite Risk - Focused Exam Vital Signs: Vital Signs Temp Pulse Resp BP Pulse Ox 02/19/21 14:29 98.3 F 102 H 20 153/78 H 96 - Problem List (1) Palliative care status SNOMED Code(s): 113549434 ICD Code: Z51.5 - ENCOUNTER FOR PALLIATIVE CARE Status: Acute Current Visit: Yes (2) Alcohol abuse SNOMED Code(s): 26376745 ICD Code: F10.10 - ALCOHOL ABUSE, UNCOMPLICATED Status: Acute Current Visit: Yes (3) Tachycardia SNOMED Code(s): 6988722 ICD Code: R00.0 - TACHYCARDIA, UNSPECIFIED Status: Acute Current Visit: Yes (4) Weakness SNOMED Code(s): 69902832 ICD Code: R53.1 - WEAKNESS Status: Acute Current Visit: Yes Problem List Initiated/Reviewed/Updated: Yes Orders Last 24hrs: Active Orders 24 hr Category Date Time Status Admission Status [Patient Status] [ADT] Routine ADT 02/19/21 16:26 Active Cardiac Monitoring [RC] CONTINUOUS Care 02/19/21 16:24 Active Cardiac Monitoring [RC] CONTINUOUS Care 02/19/21 16:34 Active Oxygen Therapy [RC] PRN Care 02/19/21 16:24 Active Oxygen Therapy [RC] PRN Care 02/19/21 16:34 Active RT Post Treatment Assessment [RC] Click to Edit Care 02/19/21 16:38 Active Up ad [place] [RC] ASDIRECTED Care 02/19/21 16:24 Active Up ad [place] [RC] ASDIRECTED Care 02/19/21 16:34 Active VTE/DVT Education [RC] Per Unit Routine Care 02/19/21 16:24 Active VTE/DVT Education [RC] Per Unit Routine Care 02/19/21 16:34 Active Vital Signs [RC] Q4H Care 02/19/21 16:24 Active Vital Signs [RC] Q4H Care 02/19/21 16:34 Active Heart Healthy Diet [DIET] Diet 02/19/21 Dinner Ordered Acetaminophen [TylenoL] Med 02/19/21 16:34 Active 650 mg PO Q4H PRN Acetaminophen [TylenoL] Med 02/19/21 17:53 Ordered 650 mg PO Q4H PRN Albuterol [Ventolin HFA] Med 02/19/21 16:36 Active 0 gm INH Q4H PRN Alendronate [Fosamax] Med 02/26/21 06:00 Ordered 70 mg PO Q7D@0600 Calcium Carbonate [Oyster Shell Calcium] Med 02/19/21 21:00 Active 500 mg PO BID Cholecalciferol (Vitamin D3) [Vitamin D3] Med 02/20/21 09:00 Active 25 mcg PO DAILY Citalopram [Celexa] Med 02/20/21 09:00 Active 40 mg PO DAILY Cyclobenzaprine [Flexeril] Med 02/19/21 21:00 Active 10 mg PO BEDTIME Enoxaparin [Lovenox] Med 02/19/21 16:30 Active 40 mg SUBCUT Q24H Fluticasone Propionate [Flonase] Med 02/19/21 21:00 Active 0 gm NASBOTH BID Gabapentin [Neurontin] Med 02/19/21 21:00 Active 600 mg PO TID LORazepam [Ativan] Med 02/19/21 17:29 Active See Protocol IVPUSH Q4H PRN Loperamide [Imodium] Med 02/19/21 17:53 Ordered 4 mg PO TID PRN Magnesium Hydroxide [Milk of Magnesia] Med 02/19/21 16:34 Active 30 ml PO Q12H PRN Metoprolol Tartrate [Lopressor] Med 02/19/21 21:00 Active 100 mg PO BID Multivitamin [Multivitamins] Med 02/20/21 09:00 Ordered 1 cap PO DAILY Ondansetron [Zofran] Med 02/19/21 16:34 Active 4 mg IV Q4H PRN Pantoprazole [ProTONIX] Med 02/20/21 09:00 Active 40 mg PO DAILY Potassium Chloride [Potassium Chloride] Med 02/20/21 09:00 Ordered 20 meq PO DAILY Simvastatin [Zocor] Med 02/19/21 21:00 Active 10 mg PO BEDTIME Tacrolimus [Prograf] Med 02/19/21 21:00 Active 1 mg PO BID Zolpidem [Ambien] Med 02/19/21 17:53 Ordered 10 mg PO BEDTIME PRN Zolpidem [Ambien] Med 02/19/21 16:34 Active 5 mg PO BEDTIME PRN amLODIPine [Norvasc] Med 02/20/21 09:00 Active 10 mg PO DAILY bisacodyL [Dulcolax] Med 02/19/21 16:34 Active 5 mg PO DAILY PRN cloNIDine [Catapres] Med 02/19/21 21:00 Active 0.1 mg PO TID fluorouraciL [Efudex 5% Cream] Med 02/19/21 18:00 Ordered 40 gm .XX ASDIRECTED gemfibroziL [Lopid] Med 02/19/21 17:30 Active 600 mg PO BIDAC metroNIDAZOLE [Metrogel] Med 02/19/21 17:53 Ordered 1 applic TP BID PRN predniSONE Med 02/20/21 09:00 Active 5 mg PO DAILY traMADol [Ultram] Med 02/19/21 16:36 Active 50 mg PO Q6H PRN Resuscitation Status Routine Resus Stat 02/19/21 16:24 Ordered EKG 12 Lead [EK] Routine Ther 02/19/21 13:47 Ordered Medication Orders Acetaminophen (Acetaminophen 325 Mg Tab) 650 mg PO Q4H PRN PRN Reason: Pain (Mild 1-3)/fever Albuterol (Albuterol 8 Gm Inhaler) 0 gm INH Q4H PRN PRN Reason: Shortness of Breath Amlodipine Besylate (Amlodipine 10 Mg Tab) 10 mg PO DAILY [facility] Bisacodyl (Bisacodyl 5 Mg Tab) 5 mg PO DAILY PRN PRN Reason: Constipation Calcium Carbonate/Glycine (Calcium Carbonate 500 Mg Tablet) 500 mg PO BID [facility] Cholecalciferol (Cholecalciferol (Vitamin D3) 25 Mcg Tab) 25 mcg PO DAILY [facility] Citalopram Hydrobromide (Citalopram 20 Mg Tab) 40 mg PO DAILY [facility] Clonidine HCl (Clonidine 0.1 Mg Tab) 0.1 mg PO TID [facility] Cyclobenzaprine HCl (Cyclobenzaprine 10 Mg Tab) 10 mg PO BEDTIME [facility] Enoxaparin Sodium (Enoxaparin 40 Mg/0.4 Ml Syringe) 40 mg SUBCUT Q24H [facility] Fluticasone Propionate (Fluticasone Propionate Nasal [place] 16 Gm Bottle) 0 gm NASBOTH BID [facility] Gabapentin (Gabapentin 600 Mg Tab) 600 mg PO TID [facility] Gemfibrozil (Gemfibrozil 600 Mg Tab) 600 mg PO BIDAC [facility] Lorazepam (Lorazepam 2 Mg/Ml Sdv) 0 mg IVPUSH Q4H PRN; Protocol PRN Reason: Agitation Magnesium Hydroxide (Magnesium Hydroxide 400 Mg/5 Ml Susp 30 Ml Cup) 30 ml PO Q12H PRN PRN Reason: Constipation Metoprolol Tartrate (Metoprolol Tartrate 100 Mg Tab) 100 mg PO BID [facility] Ondansetron HCl (Ondansetron 4 Mg/2 Ml Sdv) 4 mg IV Q4H PRN PRN Reason: Nausea/Vomiting Pantoprazole Sodium (Pantoprazole 40 Mg Tab.Cr) 40 mg PO DAILY [facility] Prednisone (Prednisone 5 Mg Tab) 5 mg PO DAILY [facility] Simvastatin (Simvastatin 10 Mg Tab) 10 mg PO BEDTIME [facility] Tacrolimus (Tacrolimus 1 Mg Cap) 1 mg PO BID [facility] Tramadol HCl (Tramadol 50 Mg Tab) 50 mg PO Q6H PRN PRN Reason: Pain Zolpidem Tartrate (Zolpidem 5 Mg Tab) 5 mg PO BEDTIME PRN PRN Reason: Sleep Assessment/Plan Comment:: 1. Admit for EtOH withdrawal protocol with Ativan been the primary medication. That includes the vitamins. 2. Full code 3. Regular diet 4. Continue his medications 5. Lovenox for clot prophylaxis 6. ICU admission for constant monitoring 7. Up ad inez. - Mortality Measure Prognosis:: Good
[2021-02-19] MEDS ORDERED: FLUOROURACIL SCH (18:00)
[2021-02-19] MEDS: Gemfibrozil 600 MG Tab PO SCH (18:01)
[2021-02-19] MEDS: Enoxaparin 40 MG/0.4 ML Syringe SUBCUT SCH (18:01)
[2021-02-19] MEDS ORDERED: Thiamine 100 MG in Sodium Chloride 0.9% 100 ML IV ONE (18:07)
[2021-02-19] MEDS: Gabapentin 600 MG Tab PO SCH (21:10)
[2021-02-19] MEDS: Metoprolol Tartrate 100 MG Tab PO SCH (21:16)
[2021-02-19] MEDS: Simvastatin 10 MG Tab PO SCH (21:17)
[2021-02-19] MEDS: Cyclobenzaprine 10 MG Tab PO SCH (21:17)
[2021-02-19] MEDS: Tacrolimus 1 MG Cap PO SCH (21:17)
[2021-02-19] MEDS: cloNIDine 0.1 MG Tab PO SCH (21:17)
[2021-02-19] MEDS: Calcium Carbonate 500 MG Tablet PO SCH (21:18)
[2021-02-19] MEDS: Fluticasone Propionate Nasal Spray 16 GM Bottle NASBOTH SCH (21:18)
[2021-02-19] MEDS: Acetaminophen 325 MG Tab PO PRN (21:43)
[2021-02-19] MEDS: Zolpidem 5 MG Tab PO PRN (22:54)
[2021-02-20] MEDS: LORazepam 1 MG Tab PO PRN ×6 (00:36→23:54)
[2021-02-20] MEDS: Gemfibrozil 600 MG Tab PO SCH ×2 (06:30→18:09)
--- NOTE | 2021-02-20 07:41 | PCM.PN ---
- General Info Date of Service: 02/20/21 Admission Dx/Problem (Free Text): Patient states he feels a little bit better. Still tremulous but overall improved. He received to advance through the night. He denies fevers, chills, chest pain, shortness of breath. - Patient Data Vitals - Most Recent: Last Vital Signs Temp 97.4 F 02/20/21 04:00 Pulse 60 02/20/21 04:00 Resp 18 02/20/21 04:00 BP 145/85 H 02/20/21 04:00 Pulse Ox 94 L 02/20/21 04:00 Weight - Most Recent: 204 lb 8 oz I&O - Last 24 Hours: Intake & Output 02/19/21 02/20/21 02/20/21 22:59 06:59 14:59 Intake Total 300 Output Total 450 Balance -150 Lab Results Last 24 Hours: Laboratory Results - last 24 hr 02/19/21 02/19/21 02/19/21 Range/Units 13:40 14:05 14:05 PT 10.5 (9.0-11.1) sec INR 0.97 L (1.00-1.24) POC VBG pH (7.32-7.43) pH Units POC VBG pCO2 (41-51) mmHg POC VBG HCO3 (21-29) mmol/L VBG Base Excess (-2-3) mmol/L O2 Delivery Device Troponin I 13.8 (4.0-60.3) pg/mL C-Reactive Protein 0.3 L (0.5-0.9) mg/dL NT-Pro-B Natriuret Pep 475 H (<=125) pg/mL TSH, Ultra Sensitive 0.53 (0.36-3.74) IU/mL Urine Color Yellow (YELLOW) Urine Appearance Clear (CLEAR) Urine pH 7.0 H (5.0-6.5) Ur Specific [place] 1.005 L (1.010-1.025) Urine Protein Negative (NEGATIVE) mg/dL Urine Glucose (UA) Normal (NORMAL) mg/dL Urine Ketones Negative (NEGATIVE) mg/dL Urine Occult Blood Negative (NEGATIVE) Urine Nitrite Negative (NEGATIVE) Urine Bilirubin Negative (NEGATIVE) Urine Urobilinogen Normal (NEGATIVE) mg/dL Ur Leukocyte Esterase Negative (NEGATIVE) Urine RBC Not seen (0-5) Urine WBC 0-5 (0-5) Ur Squamous Epith Cells Rare (NS,R,O) Urine Bacteria Rare H (NS) SARS-CoV-2 RNA (ANAYA) (NEGATIVE) 02/19/21 02/19/21 Range/Units 14:05 14:15 PT (9.0-11.1) sec INR (1.00-1.24) POC VBG pH 7.37 (7.32-7.43) pH Units POC VBG pCO2 46 (41-51) mmHg POC VBG HCO3 27 (21-29) mmol/L VBG Base Excess 2 (-2-3) mmol/L O2 Delivery Device Nasal cannula Troponin I (4.0-60.3) pg/mL C-Reactive Protein (0.5-0.9) mg/dL NT-Pro-B Natriuret Pep (<=125) pg/mL TSH, Ultra Sensitive (0.36-3.74) IU/mL Urine Color (YELLOW) Urine Appearance (CLEAR) Urine pH (5.0-6.5) Ur Specific [place] (1.010-1.025) Urine Protein (NEGATIVE) mg/dL Urine Glucose (UA) (NORMAL) mg/dL Urine Ketones (NEGATIVE) mg/dL Urine Occult Blood (NEGATIVE) Urine Nitrite (NEGATIVE) Urine Bilirubin (NEGATIVE) Urine Urobilinogen (NEGATIVE) mg/dL Ur Leukocyte Esterase (NEGATIVE) Urine RBC (0-5) Urine WBC (0-5) Ur Squamous Epith Cells (NS,R,O) Urine Bacteria (NS) SARS-CoV-2 RNA (ANAYA) Negative (NEGATIVE) Med Orders - Current: Current Medications Acetaminophen (Acetaminophen 325 Mg Tab) 650 mg PO Q4H PRN PRN Reason: Pain (Mild 1-3)/fever Last Admin: 02/19/21 21:43 Dose: 650 mg Documented by: Acetaminophen (Acetaminophen 325 Mg Tab) 650 mg PO Q4H PRN PRN Reason: Pain (mild 1-3) Albuterol (Albuterol 8 Gm Inhaler) 0 gm INH Q4H PRN PRN Reason: Shortness of Breath Amlodipine Besylate (Amlodipine 10 Mg Tab) 10 mg PO DAILY [facility] Bisacodyl (Bisacodyl 5 Mg Tab) 5 mg PO DAILY PRN PRN Reason: Constipation Calcium Carbonate/Glycine (Calcium Carbonate 500 Mg Tablet) 500 mg PO BID [facility] Last Admin: 02/19/21 21:18 Dose: 500 mg Documented by: Cholecalciferol (Cholecalciferol (Vitamin D3) 25 Mcg Tab) 25 mcg PO DAILY [facility] Citalopram Hydrobromide (Citalopram 20 Mg Tab) 40 mg PO DAILY [facility] Clonidine HCl (Clonidine 0.1 Mg Tab) 0.1 mg PO TID [facility] Last Admin: 02/19/21 21:17 Dose: 0.1 mg Documented by: Cyclobenzaprine HCl (Cyclobenzaprine 10 Mg Tab) 10 mg PO BEDTIME [facility] Last Admin: 02/19/21 21:17 Dose: 10 mg Documented by: Enoxaparin Sodium (Enoxaparin 40 Mg/0.4 Ml Syringe) 40 mg SUBCUT Q24H [facility] Last Admin: 02/19/21 18:01 Dose: 40 mg Documented by: Fluticasone Propionate (Fluticasone Propionate Nasal [place] 16 Gm Bottle) 0 gm NASBOTH BID [facility] Last Admin: 02/19/21 21:18 Dose: 1 spray Documented by: Gabapentin (Gabapentin 600 Mg Tab) 600 mg PO TID [facility] Last Admin: 02/19/21 21:10 Dose: 600 mg Documented by: Gemfibrozil (Gemfibrozil 600 Mg Tab) 600 mg PO BIDAC [facility] Last Admin: 02/20/21 06:30 Dose: 600 mg Documented by: Heparin Sodium (Porcine) (Heparin Sodium 100 Units/Ml 5 Ml Syringe) 300 units FLUSH ASDIRECTED PRN PRN Reason: rae-cath flush Last Admin: 02/19/21 19:00 Dose: 300 units Documented by: Loperamide HCl (Loperamide 2 Mg Cap) 4 mg PO TID PRN PRN Reason: Diarrhea Lorazepam (Lorazepam 2 Mg/Ml Sdv) 0 mg IVPUSH Q1H PRN; Protocol PRN Reason: Agitation Last Admin: 02/19/21 19:00 Dose: 1 mg Documented by: Lorazepam (Lorazepam 1 Mg Tab) 1 mg PO Q2H PRN PRN Reason: Withdrawal Symptoms Last Admin: 02/20/21 05:45 Dose: 1 mg Documented by: Magnesium Hydroxide (Magnesium Hydroxide 400 Mg/5 Ml Susp 30 Ml Cup) 30 ml PO Q12H PRN PRN Reason: Constipation Metoprolol Tartrate (Metoprolol Tartrate 100 Mg Tab) 100 mg PO BID [facility] Last Admin: 02/19/21 21:16 Dose: 100 mg Documented by: Multivitamins/Minerals/Vitamin C (Multivitamin Tab) 1 tab PO DAILY [facility] Non-Formulary Medication (Fluorouracil [Efudex 5% Cream]) 40 gm .XX ASDIRECTED [facility] Non-Formulary Medication (Metronidazole [Metrogel]) 1 applic TP BID PRN PRN Reason: DRY SKIN Ondansetron HCl (Ondansetron 4 Mg/2 Ml Sdv) 4 mg IV Q4H PRN PRN Reason: Nausea/Vomiting Pantoprazole Sodium (Pantoprazole 40 Mg Tab.Cr) 40 mg PO DAILY [facility] Potassium Chloride (Potassium Chloride 20 Meq Tab.Er) 20 meq PO DAILY [facility] Prednisone (Prednisone 5 Mg Tab) 5 mg PO DAILY [facility] Simvastatin (Simvastatin 10 Mg Tab) 10 mg PO BEDTIME [facility] Last Admin: 02/19/21 21:17 Dose: 10 mg Documented by: Sodium Chloride (Sodium Chloride 0.9% 10 Ml Syringe) 10 ml FLUSH ASDIRECTED PRN PRN Reason: flush Last Admin: 02/19/21 19:02 Dose: 10 ml Documented by: Tacrolimus (Tacrolimus 1 Mg Cap) 1 mg PO BID [facility] Last Admin: 02/19/21 21:17 Dose: 1 mg Documented by: Thiamine HCl (Thiamine 100 Mg Tab) 100 mg PO BEDTIME [facility] Stop: 02/21/21 21:01 Tramadol HCl (Tramadol 50 Mg Tab) 50 mg PO Q6H PRN PRN Reason: Pain Zolpidem Tartrate (Zolpidem 5 Mg Tab) 5 mg PO BEDTIME PRN PRN Reason: Sleep Last Admin: 02/19/21 22:54 Dose: 5 mg Documented by: Discontinued Medications Alendronate Sodium (Alendronate 70 Mg Tab) 70 mg PO Q7D@0600 [facility] Heparin Sodium (Porcine) (Heparin Sodium 100 Units/Ml 5 Ml Syringe) Confirm Administered Dose 500 units .ROUTE .STK-MED ONE Stop: 02/19/21 17:53 Last Admin: 02/19/21 19:39 Dose: Not Given Documented by: Thiamine HCl 100 mg/ Sodium (Chloride) 101 mls @ 202 mls/hr IV ONETIME ONE Stop: 02/19/21 18:08 Last Admin: 02/19/21 18:25 Dose: 202 mls/hr Documented by: Lorazepam (Lorazepam 2 Mg/Ml Sdv) 0 mg IVPUSH Q4H PRN; Protocol PRN Reason: Agitation Last Admin: 02/19/21 17:53 Dose: 1 mg Documented by: Zolpidem Tartrate (Zolpidem 10 Mg Tab) 10 mg PO BEDTIME PRN PRN Reason: Insomnia - Exam General: Alert, Oriented Lungs: Clear to Auscultation, Normal Respiratory Effort Cardiovascular: Regular Rate, Regular Rhythm, No Murmurs - Patient Data Lab Results Last 24 hrs: Laboratory Results - last 24 hr 02/19/21 02/19/21 02/19/21 Range/Units 13:40 14:05 14:05 PT 10.5 (9.0-11.1) sec INR 0.97 L (1.00-1.24) POC VBG pH (7.32-7.43) pH Units POC VBG pCO2 (41-51) mmHg POC VBG HCO3 (21-29) mmol/L VBG Base Excess (-2-3) mmol/L O2 Delivery Device Troponin I 13.8 (4.0-60.3) pg/mL C-Reactive Protein 0.3 L (0.5-0.9) mg/dL NT-Pro-B Natriuret Pep 475 H (<=125) pg/mL TSH, Ultra Sensitive 0.53 (0.36-3.74) IU/mL Urine Color Yellow (YELLOW) Urine Appearance Clear (CLEAR) Urine pH 7.0 H (5.0-6.5) Ur Specific [place] 1.005 L (1.010-1.025) Urine Protein Negative (NEGATIVE) mg/dL Urine Glucose (UA) Normal (NORMAL) mg/dL Urine Ketones Negative (NEGATIVE) mg/dL Urine Occult Blood Negative (NEGATIVE) Urine Nitrite Negative (NEGATIVE) Urine Bilirubin Negative (NEGATIVE) Urine Urobilinogen Normal (NEGATIVE) mg/dL Ur Leukocyte Esterase Negative (NEGATIVE) Urine RBC Not seen (0-5) Urine WBC 0-5 (0-5) Ur Squamous Epith Cells Rare (NS,R,O) Urine Bacteria Rare H (NS) SARS-CoV-2 RNA (ANAYA) (NEGATIVE) 02/19/21 02/19/21 Range/Units 14:05 14:15 PT (9.0-11.1) sec INR (1.00-1.24) POC VBG pH 7.37 (7.32-7.43) pH Units POC VBG pCO2 46 (41-51) mmHg POC VBG HCO3 27 (21-29) mmol/L VBG Base Excess 2 (-2-3) mmol/L O2 Delivery Device Nasal cannula Troponin I (4.0-60.3) pg/mL C-Reactive Protein (0.5-0.9) mg/dL NT-Pro-B Natriuret Pep (<=125) pg/mL TSH, Ultra Sensitive (0.36-3.74) IU/mL Urine Color (YELLOW) Urine Appearance (CLEAR) Urine pH (5.0-6.5) Ur Specific [place] (1.010-1.025) Urine Protein (NEGATIVE) mg/dL Urine Glucose (UA) (NORMAL) mg/dL Urine Ketones (NEGATIVE) mg/dL Urine Occult Blood (NEGATIVE) Urine Nitrite (NEGATIVE) Urine Bilirubin (NEGATIVE) Urine Urobilinogen (NEGATIVE) mg/dL Ur Leukocyte Esterase (NEGATIVE) Urine RBC (0-5) Urine WBC (0-5) Ur Squamous Epith Cells (NS,R,O) Urine Bacteria (NS) SARS-CoV-2 RNA (ANAYA) Negative (NEGATIVE) Sepsis Event Note - Evaluation Sepsis Screening Result: No Definite Risk - Focused Exam Vital Signs: Vital Signs Temp Pulse Pulse Resp BP BP Pulse Ox 02/20/21 04:00 97.4 F 60 18 145/85 H 94 L 02/20/21 00:00 61 18 138/84 96 02/19/21 23:25 97.4 F 65 18 142/84 H 96 02/19/21 21:17 154/92 H 02/19/21 21:16 91 158/92 H 02/19/21 20:00 96.6 F L 91 18 148/88 H 95 - Problem List & Annotations (1) Palliative care status SNOMED Code(s): 859769522 Code(s): Z51.5 - ENCOUNTER FOR PALLIATIVE CARE Status: Acute Current Visit: Yes (2) Alcohol abuse SNOMED Code(s): 00268178 Code(s): F10.10 - ALCOHOL ABUSE, UNCOMPLICATED Status: Acute Current Visit: Yes (3) Tachycardia SNOMED Code(s): 7680793 Code(s): R00.0 - TACHYCARDIA, UNSPECIFIED Status: Acute Current Visit: Yes (4) Weakness SNOMED Code(s): 02899316 Code(s): R53.1 - WEAKNESS Status: Acute Current Visit: Yes (5) Alcohol withdrawal SNOMED Code(s): 050546741 Code(s): F10.239 - ALCOHOL DEPENDENCE WITH WITHDRAWAL, UNSPECIFIED Status: Acute Current Visit: Yes - Problem List Review Problem List Initiated/Reviewed/Updated: Yes - My Orders Last 24 Hours: My Active Orders 02/19/21 17:53 Acetaminophen [TylenoL] 650 mg PO Q4H PRN Loperamide [Imodium] 4 mg PO TID PRN metroNIDAZOLE [Metrogel] 1 applic TP BID PRN 02/19/21 17:59 Sodium Chloride 0.9% [Saline Flush] 10 ml FLUSH ASDIRECTED PRN 02/19/21 18:00 fluorouraciL [Efudex 5% Cream] 40 gm .XX ASDIRECTED 02/19/21 18:09 Heparin Sodium [Heparin Lock Flush 100 Units/ML] 300 units FLUSH ASDIRECTED PRN 02/19/21 19:15 LORazepam [Ativan] See Protocol IVPUSH Q1H PRN 02/20/21 09:00 Multivitamins [Tab-A-Teetee] 1 tab PO DAILY Potassium Chloride [Klor-Con M20] 20 meq PO DAILY 02/20/21 21:00 Thiamine [Vitamin B-1] 100 mg PO BEDTIME - Plan Plan:: 1. Continue current care.
[2021-02-20] MEDS: Gabapentin 600 MG Tab PO SCH ×3 (08:36→20:16)
[2021-02-20] MEDS: Calcium Carbonate 500 MG Tablet PO SCH ×2 (08:45→20:07)
[2021-02-20] MEDS: amLODIPine 10 MG Tab PO SCH (08:45)
[2021-02-20] MEDS: Cholecalciferol (Vitamin D3) 25 MCG Tab PO SCH (08:45)
[2021-02-20] MEDS: cloNIDine 0.1 MG Tab PO SCH ×3 (08:45→20:07)
[2021-02-20] MEDS: Metoprolol Tartrate 100 MG Tab PO SCH ×2 (08:45→20:07)
[2021-02-20] MEDS: Potassium Chloride 20 MEQ Tab.ER PO SCH (08:46)
[2021-02-20] MEDS: Fluticasone Propionate Nasal Spray 16 GM Bottle NASBOTH SCH ×2 (08:46→20:13)
[2021-02-20] MEDS: Pantoprazole 40 MG Tab.CR PO SCH (08:46)
[2021-02-20] MEDS: Citalopram 20 MG Tab PO SCH (08:46)
[2021-02-20] MEDS: Multivitamin Tab PO SCH (08:46)
[2021-02-20] MEDS: predniSONE 5 MG Tab PO SCH (08:46)
[2021-02-20] MEDS: Tacrolimus 1 MG Cap PO SCH ×2 (08:58→20:06)
[2021-02-20] MEDS: Acetaminophen 325 MG Tab PO PRN (13:29)
[2021-02-20] MEDS: Enoxaparin 40 MG/0.4 ML Syringe SUBCUT SCH (17:57)
[2021-02-20] MEDS: Cyclobenzaprine 10 MG Tab PO SCH (20:06)
[2021-02-20] MEDS: Simvastatin 10 MG Tab PO SCH (20:07)
[2021-02-20] MEDS ORDERED: Thiamine 100 MG Tab PO SCH (21:00)
[2021-02-20] MEDS: Zolpidem 5 MG Tab PO PRN (21:16)
[2021-02-21] MEDS: Gemfibrozil 600 MG Tab PO SCH (06:31)
[2021-02-21] MEDS: LORazepam 1 MG Tab PO PRN (07:08)
[2021-02-21] MEDS: Calcium Carbonate 500 MG Tablet PO SCH (08:23)
[2021-02-21] MEDS: Cholecalciferol (Vitamin D3) 25 MCG Tab PO SCH (08:23)
[2021-02-21] MEDS: cloNIDine 0.1 MG Tab PO SCH (08:23)
[2021-02-21] MEDS: predniSONE 5 MG Tab PO SCH (08:23)
[2021-02-21] MEDS: Gabapentin 600 MG Tab PO SCH (08:23)
[2021-02-21] MEDS: Citalopram 20 MG Tab PO SCH (08:23)
[2021-02-21] MEDS: Multivitamin Tab PO SCH (08:23)
[2021-02-21] MEDS: Potassium Chloride 20 MEQ Tab.ER PO SCH (08:24)
[2021-02-21] MEDS: amLODIPine 10 MG Tab PO SCH (08:24)
[2021-02-21] MEDS: Metoprolol Tartrate 100 MG Tab PO SCH (08:24)
[2021-02-21] MEDS: Pantoprazole 40 MG Tab.CR PO SCH (08:24)
[2021-02-21] MEDS: Fluticasone Propionate Nasal Spray 16 GM Bottle NASBOTH SCH (08:25)
[2021-02-21 08:27] VITALS: BP 149/97; PULSE 69
[2021-02-21] MEDS: Tacrolimus 1 MG Cap PO SCH (08:27)
--- NOTE | 2021-02-21 08:29 | PCM.PN ---
- General Info Date of Service: 02/21/21 Admission Dx/Problem (Free Text): Patient states she's feeling a lot better. Wait less tremulous. He has been using little bit Ativan. He has no chest pain, shortness of breath, cough. - Patient Data Vitals - Most Recent: Last Vital Signs Temp 97.4 F 02/21/21 04:00 Pulse 69 02/21/21 08:24 Resp 18 02/21/21 04:00 BP 149/97 H 02/21/21 08:24 Pulse Ox 93 L 02/21/21 04:00 Weight - Most Recent: 204 lb 8 oz Med Orders - Current: Current Medications Acetaminophen (Acetaminophen 325 Mg Tab) 650 mg PO Q4H PRN PRN Reason: Pain (Mild 1-3)/fever Last Admin: 02/20/21 13:29 Dose: 650 mg Documented by: Acetaminophen (Acetaminophen 325 Mg Tab) 650 mg PO Q4H PRN PRN Reason: Pain (mild 1-3) Albuterol (Albuterol 8 Gm Inhaler) 0 gm INH Q4H PRN PRN Reason: Shortness of Breath Amlodipine Besylate (Amlodipine 10 Mg Tab) 10 mg PO DAILY [facility] Last Admin: 02/21/21 08:24 Dose: 10 mg Documented by: Bisacodyl (Bisacodyl 5 Mg Tab) 5 mg PO DAILY PRN PRN Reason: Constipation Calcium Carbonate/Glycine (Calcium Carbonate 500 Mg Tablet) 500 mg PO BID [facility] Last Admin: 02/21/21 08:23 Dose: 500 mg Documented by: Cholecalciferol (Cholecalciferol (Vitamin D3) 25 Mcg Tab) 25 mcg PO DAILY [facility] Last Admin: 02/21/21 08:23 Dose: 25 mcg Documented by: Citalopram Hydrobromide (Citalopram 20 Mg Tab) 40 mg PO DAILY [facility] Last Admin: 02/21/21 08:23 Dose: 40 mg Documented by: Clonidine HCl (Clonidine 0.1 Mg Tab) 0.1 mg PO TID [facility] Last Admin: 02/21/21 08:23 Dose: 0.1 mg Documented by: Cyclobenzaprine HCl (Cyclobenzaprine 10 Mg Tab) 10 mg PO BEDTIME [facility] Last Admin: 02/20/21 20:06 Dose: 10 mg Documented by: Enoxaparin Sodium (Enoxaparin 40 Mg/0.4 Ml Syringe) 40 mg SUBCUT Q24H [facility] Last Admin: 02/20/21 17:57 Dose: 40 mg Documented by: Fluticasone Propionate (Fluticasone Propionate Nasal [place] 16 Gm Bottle) 0 gm NASBOTH BID [facility] Last Admin: 02/21/21 08:25 Dose: 1 spray Documented by: Gabapentin (Gabapentin 600 Mg Tab) 600 mg PO TID [facility] Last Admin: 02/21/21 08:23 Dose: 600 mg Documented by: Gemfibrozil (Gemfibrozil 600 Mg Tab) 600 mg PO BIDAC [facility] Last Admin: 02/21/21 06:31 Dose: 600 mg Documented by: Heparin Sodium (Porcine) (Heparin Sodium 100 Units/Ml 5 Ml Syringe) 300 units FLUSH ASDIRECTED PRN PRN Reason: rae-cath flush Last Admin: 02/19/21 19:00 Dose: 300 units Documented by: Loperamide HCl (Loperamide 2 Mg Cap) 4 mg PO TID PRN PRN Reason: Diarrhea Lorazepam (Lorazepam 2 Mg/Ml Sdv) 0 mg IVPUSH Q1H PRN; Protocol PRN Reason: Agitation Last Admin: 02/19/21 19:00 Dose: 1 mg Documented by: Lorazepam (Lorazepam 1 Mg Tab) 1 mg PO Q2H PRN PRN Reason: Withdrawal Symptoms Last Admin: 02/21/21 07:08 Dose: 1 mg Documented by: Magnesium Hydroxide (Magnesium Hydroxide 400 Mg/5 Ml Susp 30 Ml Cup) 30 ml PO Q12H PRN PRN Reason: Constipation Metoprolol Tartrate (Metoprolol Tartrate 100 Mg Tab) 100 mg PO BID [facility] Last Admin: 02/21/21 08:24 Dose: 100 mg Documented by: Multivitamins/Minerals/Vitamin C (Multivitamin Tab) 1 tab PO DAILY [facility] Last Admin: 02/21/21 08:23 Dose: 1 tab Documented by: Non-Formulary Medication (Fluorouracil [Efudex 5% Cream]) 40 gm .XX ASDIRECTED [facility] Non-Formulary Medication (Metronidazole [Metrogel]) 1 applic TP BID PRN PRN Reason: DRY SKIN Ondansetron HCl (Ondansetron 4 Mg/2 Ml Sdv) 4 mg IV Q4H PRN PRN Reason: Nausea/Vomiting Pantoprazole Sodium (Pantoprazole 40 Mg Tab.Cr) 40 mg PO DAILY [facility] Last Admin: 02/21/21 08:24 Dose: 40 mg Documented by: Potassium Chloride (Potassium Chloride 20 Meq Tab.Er) 20 meq PO DAILY [facility] Last Admin: 02/21/21 08:24 Dose: 20 meq Documented by: Prednisone (Prednisone 5 Mg Tab) 5 mg PO DAILY [facility] Last Admin: 02/21/21 08:23 Dose: 5 mg Documented by: Simvastatin (Simvastatin 10 Mg Tab) 10 mg PO BEDTIME [facility] Last Admin: 02/20/21 20:07 Dose: 10 mg Documented by: Sodium Chloride (Sodium Chloride 0.9% 10 Ml Syringe) 10 ml FLUSH ASDIRECTED PRN PRN Reason: flush Last Admin: 02/19/21 19:02 Dose: 10 ml Documented by: Tacrolimus (Tacrolimus 1 Mg Cap) 1 mg PO BID [facility] Last Admin: 02/21/21 08:27 Dose: 1 mg Documented by: Thiamine HCl (Thiamine 100 Mg Tab) 100 mg PO BEDTIME [facility] Stop: 02/21/21 21:01 Last Admin: 02/20/21 20:06 Dose: 100 mg Documented by: Tramadol HCl (Tramadol 50 Mg Tab) 50 mg PO Q6H PRN PRN Reason: Pain Last Admin: 02/20/21 08:37 Dose: 50 mg Documented by: Zolpidem Tartrate (Zolpidem 5 Mg Tab) 5 mg PO BEDTIME PRN PRN Reason: Sleep Last Admin: 02/20/21 21:16 Dose: 5 mg Documented by: Discontinued Medications Alendronate Sodium (Alendronate 70 Mg Tab) 70 mg PO Q7D@0600 [facility] Heparin Sodium (Porcine) (Heparin Sodium 100 Units/Ml 5 Ml Syringe) Confirm Administered Dose 500 units .ROUTE .STK-MED ONE Stop: 02/19/21 17:53 Last Admin: 02/19/21 19:39 Dose: Not Given Documented by: Thiamine HCl 100 mg/ Sodium (Chloride) 101 mls @ 202 mls/hr IV ONETIME ONE Stop: 02/19/21 18:08 Last Admin: 02/19/21 18:25 Dose: 202 mls/hr Documented by: Lorazepam (Lorazepam 2 Mg/Ml Sdv) 0 mg IVPUSH Q4H PRN; Protocol PRN Reason: Agitation Last Admin: 02/19/21 17:53 Dose: 1 mg Documented by: Zolpidem Tartrate (Zolpidem 10 Mg Tab) 10 mg PO BEDTIME PRN PRN Reason: Insomnia - Exam General: Alert, Oriented, Cooperative Neurological: Other (No tremors) Sepsis Event Note - Evaluation Sepsis Screening Result: No Definite Risk - Focused Exam Vital Signs: Vital Signs Temp Pulse Pulse Resp BP BP Pulse Ox 02/21/21 08:24 69 149/97 H 02/21/21 08:23 149/97 H 02/21/21 04:00 97.4 F 64 18 156/88 H 93 L 02/20/21 23:51 96.6 F L 60 17 134/85 92 L - Problem List & Annotations (1) Palliative care status SNOMED Code(s): 499551988 Code(s): Z51.5 - ENCOUNTER FOR PALLIATIVE CARE Status: Acute Current Visit: Yes (2) Alcohol abuse SNOMED Code(s): 66480950 Code(s): F10.10 - ALCOHOL ABUSE, UNCOMPLICATED Status: Acute Current Visit: Yes (3) Tachycardia SNOMED Code(s): 1798771 Code(s): R00.0 - TACHYCARDIA, UNSPECIFIED Status: Acute Current Visit: Yes (4) Weakness SNOMED Code(s): 61221239 Code(s): R53.1 - WEAKNESS Status: Acute Current Visit: Yes (5) Alcohol withdrawal SNOMED Code(s): 091912427 Code(s): F10.239 - ALCOHOL DEPENDENCE WITH WITHDRAWAL, UNSPECIFIED Status: Acute Current Visit: Yes - Problem List Review Problem List Initiated/Reviewed/Updated: Yes - My Orders Last 24 Hours: My Active Orders 02/20/21 09:00 Multivitamins [Tab-A-Teetee] 1 tab PO DAILY Potassium Chloride [Klor-Con M20] 20 meq PO DAILY 02/20/21 21:00 Thiamine [Vitamin B-1] 100 mg PO BEDTIME - Plan Plan:: 1. Patient states that his has a program through her work for alcohol it is going to pursue that. 2. He's also going to get himself and a sponsor and go to . 3. Discharged home with this plan recheck with primary in a week and by mouth Ativan when necessary for any tremors.
--- NOTE | 2021-02-21 08:37 | PCM.DCSUM1 ---
Discharge Summary - Hospital Course Free Text/Narrative:: Hospital course-patient was admitted and placed on the alcohol withdrawal protocol. Ativan was used. He did very nicely with decreasing tremors. Blood pressure and pulse improved. Patient requires oxygen at night from previous issues. He had no problems. Liver functions and INR were normal. Patient actually wants to get help and get off alcohol. He states his 's work which is [employer] has a program for alcohol treatment and he was given AA. That's what batsheva lafleur will pursue. I'll send him home on some when necessary Ativan for a tremors and he'll recheck with primary provider in a week. He will establish alcohol she will plan per him and his . Brief History: This is a 65-year-old male patient that presented to the urgent care [facility] because he was drinking too much and he felt like he was going to withdraw. He states he normally drinks alcohol on weekends. But for the last 2 months he's been drinking at least 12 beers every day. He stopped yesterday started getting shaky. He says he wants to get off alcohol and get some help. He denies recreational drug use and he is not a smoker. He's never been in treatment before. He denies chest pain or shortness of breath, fevers or chills Diagnosis: Stroke: No - Discharge Data Discharge Date: 02/21/21 Discharge Disposition: Home, Self-Care 01 Condition: Good - Referral to Home Health Primary Care Physician: Rico Liz MD - Discharge Diagnosis/Problem(s) (1) Palliative care status SNOMED Code(s): 752785167 ICD Code: Z51.5 - ENCOUNTER FOR PALLIATIVE CARE Status: Acute Current Visit: Yes (2) Alcohol abuse SNOMED Code(s): 93081974 ICD Code: F10.10 - ALCOHOL ABUSE, UNCOMPLICATED Status: Acute Current Visit: Yes (3) Tachycardia SNOMED Code(s): 4288076 ICD Code: R00.0 - TACHYCARDIA, UNSPECIFIED Status: Acute Current Visit: Yes (4) Weakness SNOMED Code(s): 61008901 ICD Code: R53.1 - WEAKNESS Status: Acute Current Visit: Yes (5) Alcohol withdrawal SNOMED Code(s): 784554953 ICD Code: F10.239 - ALCOHOL DEPENDENCE WITH WITHDRAWAL, UNSPECIFIED Status: Acute Current Visit: Yes - Patient Instructions Diet: Regular Diet as Tolerated Activity: As Tolerated Driving: May Drive Today Showering/Bathing: May Shower - Discharge Plan *PRESCRIPTION DRUG MONITORING PROGRAM REVIEWED*: Not Applicable *COPY OF PRESCRIPTION DRUG MONITORING REPORT IN PATIENT MIGDALIA: Not Applicable Prescriptions/Med Rec: LORazepam [Ativan] 1 mg PO Q4H PRN #30 tablet PRN Reason: Withdrawal Symptoms Home Medications: Home Meds Citalopram Hydrobromide [Celexa] 40 mg PO DAILY 08/18/13 [History] Metoprolol Tartrate [Lopressor] 100 mg PO BID 08/18/13 [History] Multivitamin [Multivitamins] 1 cap PO DAILY 08/18/13 [History] Zolpidem [Ambien] 10 mg PO BEDTIME PRN 08/18/13 [History] amLODIPine [Norvasc] 10 mg PO DAILY 08/18/13 [History] predniSONE [Prednisone] 5 mg PO DAILY 08/18/13 [History] Gabapentin [Neurontin] 600 mg PO TID 06/18/14 [History] Pantoprazole [ProTONIX] 40 mg PO DAILY 06/18/14 [History] Acetaminophen 650 mg PO Q4H PRN 04/10/15 [History] Albuterol Sulfate [Albuterol Sulfate HFA] 2 puff INH Q4H PRN 04/10/15 [History] Alendronate [Fosamax] 70 mg PO Q7D@0600 04/10/15 [History] Calcium Carbonate/Vitamin D3 [Calcium 500-Vit D3 200 Tablet] 1 tab PO BID 04/10/15 [History] Gemfibrozil 600 mg PO BIDAC 04/10/15 [History] Loperamide [Imodium] 4 mg PO TID PRN 04/10/15 [History] Potassium Chloride 20 meq PO DAILY 04/10/15 [History] Simvastatin [Zocor] 10 mg PO BEDTIME 04/10/15 [History] Tacrolimus [Prograf] 1 mg PO BID 04/10/15 [History] cloNIDine [Catapres] 0.1 mg PO TID 01/15/18 [History] metroNIDAZOLE [Metrogel] 1 applic TP BID PRN 01/15/18 [History] Cholecalciferol (Vitamin D3) [Vitamin D3] 1,000 units PO DAILY 03/08/18 [History] Cyclobenzaprine [Flexeril] 10 mg PO BEDTIME 02/19/21 [History] Fluticasone Propionate [Flonase] 1 spray NASBOTH BID 02/19/21 [History] fluorouraciL [Efudex 5% Cream] 40 gm .XX ASDIRECTED 02/19/21 [History] traMADol [Ultram] 50 mg PO Q6H PRN 02/19/21 [History] LORazepam [Ativan] 1 mg PO Q4H PRN #30 tablet 02/21/21 [Rx] Patient Handouts: Alcohol Use Disorder, Alcohol Abuse and Dependence Information, Adult, Fall Prevention in Hospitals, Adult Forms: ED Department Discharge Referrals: Rico Liz MD [Primary Care Provider] - - Discharge Summary/Plan Comment DC Time >30 min.: No - Patient Data Vitals - Most Recent: Last Vital Signs Temp 97.4 F 02/21/21 04:00 Pulse 69 02/21/21 08:24 Resp 18 02/21/21 04:00 BP 149/97 H 02/21/21 08:24 Pulse Ox 93 L 02/21/21 04:00 Weight - Most Recent: 204 lb 8 oz Med Orders - Current: Current Medications Acetaminophen (Acetaminophen 325 Mg Tab) 650 mg PO Q4H PRN PRN Reason: Pain (Mild 1-3)/fever Last Admin: 02/20/21 13:29 Dose: 650 mg Documented by: Acetaminophen (Acetaminophen 325 Mg Tab) 650 mg PO Q4H PRN PRN Reason: Pain (mild 1-3) Albuterol (Albuterol 8 Gm Inhaler) 0 gm INH Q4H PRN PRN Reason: Shortness of Breath Amlodipine Besylate (Amlodipine 10 Mg Tab) 10 mg PO DAILY [facility] Last Admin: 02/21/21 08:24 Dose: 10 mg Documented by: Bisacodyl (Bisacodyl 5 Mg Tab) 5 mg PO DAILY PRN PRN Reason: Constipation Calcium Carbonate/Glycine (Calcium Carbonate 500 Mg Tablet) 500 mg PO BID [facility] Last Admin: 02/21/21 08:23 Dose: 500 mg Documented by: Cholecalciferol (Cholecalciferol (Vitamin D3) 25 Mcg Tab) 25 mcg PO DAILY [facility] Last Admin: 02/21/21 08:23 Dose: 25 mcg Documented by: Citalopram Hydrobromide (Citalopram 20 Mg Tab) 40 mg PO DAILY [facility] Last Admin: 02/21/21 08:23 Dose: 40 mg Documented by: Clonidine HCl (Clonidine 0.1 Mg Tab) 0.1 mg PO TID [facility] Last Admin: 02/21/21 08:23 Dose: 0.1 mg Documented by: Cyclobenzaprine HCl (Cyclobenzaprine 10 Mg Tab) 10 mg PO BEDTIME [facility] Last Admin: 02/20/21 20:06 Dose: 10 mg Documented by: Enoxaparin Sodium (Enoxaparin 40 Mg/0.4 Ml Syringe) 40 mg SUBCUT Q24H [facility] Last Admin: 02/20/21 17:57 Dose: 40 mg Documented by: Fluticasone Propionate (Fluticasone Propionate Nasal [place] 16 Gm Bottle) 0 gm NASBOTH BID [facility] Last Admin: 02/21/21 08:25 Dose: 1 spray Documented by: Gabapentin (Gabapentin 600 Mg Tab) 600 mg PO TID [facility] Last Admin: 02/21/21 08:23 Dose: 600 mg Documented by: Gemfibrozil (Gemfibrozil 600 Mg Tab) 600 mg PO BIDAC [facility] Last Admin: 02/21/21 06:31 Dose: 600 mg Documented by: Heparin Sodium (Porcine) (Heparin Sodium 100 Units/Ml 5 Ml Syringe) 300 units FLUSH ASDIRECTED PRN PRN Reason: rae-cath flush Last Admin: 02/19/21 19:00 Dose: 300 units Documented by: Loperamide HCl (Loperamide 2 Mg Cap) 4 mg PO TID PRN PRN Reason: Diarrhea Lorazepam (Lorazepam 2 Mg/Ml Sdv) 0 mg IVPUSH Q1H PRN; Protocol PRN Reason: Agitation Last Admin: 02/19/21 19:00 Dose: 1 mg Documented by: Lorazepam (Lorazepam 1 Mg Tab) 1 mg PO Q2H PRN PRN Reason: Withdrawal Symptoms Last Admin: 02/21/21 07:08 Dose: 1 mg Documented by: Magnesium Hydroxide (Magnesium Hydroxide 400 Mg/5 Ml Susp 30 Ml Cup) 30 ml PO Q12H PRN PRN Reason: Constipation Metoprolol Tartrate (Metoprolol Tartrate 100 Mg Tab) 100 mg PO BID [facility] Last Admin: 02/21/21 08:24 Dose: 100 mg Documented by: Multivitamins/Minerals/Vitamin C (Multivitamin Tab) 1 tab PO DAILY [facility] Last Admin: 02/21/21 08:23 Dose: 1 tab Documented by: Non-Formulary Medication (Fluorouracil [Efudex 5% Cream]) 40 gm .XX ASDIRECTED [facility] Non-Formulary Medication (Metronidazole [Metrogel]) 1 applic TP BID PRN PRN Reason: DRY SKIN Ondansetron HCl (Ondansetron 4 Mg/2 Ml Sdv) 4 mg IV Q4H PRN PRN Reason: Nausea/Vomiting Pantoprazole Sodium (Pantoprazole 40 Mg Tab.Cr) 40 mg PO DAILY [facility] Last Admin: 02/21/21 08:24 Dose: 40 mg Documented by: Potassium Chloride (Potassium Chloride 20 Meq Tab.Er) 20 meq PO DAILY [facility] Last Admin: 02/21/21 08:24 Dose: 20 meq Documented by: Prednisone (Prednisone 5 Mg Tab) 5 mg PO DAILY [facility] Last Admin: 02/21/21 08:23 Dose: 5 mg Documented by: Simvastatin (Simvastatin 10 Mg Tab) 10 mg PO BEDTIME [facility] Last Admin: 02/20/21 20:07 Dose: 10 mg Documented by: Sodium Chloride (Sodium Chloride 0.9% 10 Ml Syringe) 10 ml FLUSH ASDIRECTED PRN PRN Reason: flush Last Admin: 02/19/21 19:02 Dose: 10 ml Documented by: Tacrolimus (Tacrolimus 1 Mg Cap) 1 mg PO BID [facility] Last Admin: 02/21/21 08:27 Dose: 1 mg Documented by: Thiamine HCl (Thiamine 100 Mg Tab) 100 mg PO BEDTIME [facility] Stop: 02/21/21 21:01 Last Admin: 02/20/21 20:06 Dose: 100 mg Documented by: Tramadol HCl (Tramadol 50 Mg Tab) 50 mg PO Q6H PRN PRN Reason: Pain Last Admin: 02/20/21 08:37 Dose: 50 mg Documented by: Zolpidem Tartrate (Zolpidem 5 Mg Tab) 5 mg PO BEDTIME PRN PRN Reason: Sleep Last Admin: 02/20/21 21:16 Dose: 5 mg Documented by: Discontinued Medications Alendronate Sodium (Alendronate 70 Mg Tab) 70 mg PO Q7D@0600 [facility] Heparin Sodium (Porcine) (Heparin Sodium 100 Units/Ml 5 Ml Syringe) Confirm Administered Dose 500 units .ROUTE .STK-MED ONE Stop: 02/19/21 17:53 Last Admin: 02/19/21 19:39 Dose: Not Given Documented by: Thiamine HCl 100 mg/ Sodium (Chloride) 101 mls @ 202 mls/hr IV ONETIME ONE Stop: 02/19/21 18:08 Last Admin: 02/19/21 18:25 Dose: 202 mls/hr Documented by: Lorazepam (Lorazepam 2 Mg/Ml Sdv) 0 mg IVPUSH Q4H PRN; Protocol PRN Reason: Agitation Last Admin: 02/19/21 17:53 Dose: 1 mg Documented by: Zolpidem Tartrate (Zolpidem 10 Mg Tab) 10 mg PO BEDTIME PRN PRN Reason: Insomnia
[2021-02-25] MEDS ORDERED: Alendronate 70 MG Tab PO SCH (06:00)
== END 2021-02-21 09:50 | disposition home or self-care (01) | DRG 775 ==
LOC: FB.ED 12:42 → FB.MS 16:36
PROVIDERS: ADMIT Emergency Medicine; ATTEND Family Medicine
DX: F10.239 Alcohol dependence with withdrawal, unspecified (principal); Z51.5 Encounter for palliative care; H54.7 Unspecified visual loss; H04.123 Dry eye syndrome of bilateral lacrimal glands; E78.00 Pure hypercholesterolemia, unspecified; I10 Essential (primary) hypertension; G47.30 Sleep apnea, unspecified; G89.29 Other chronic pain; M54.9 Dorsalgia, unspecified; M19.90 Unspecified osteoarthritis, unspecified site; G62.9 Polyneuropathy, unspecified; M51.36 Other intervertebral disc degeneration, lumbar region; F32.9 Major depressive disorder, single episode, unspecified; Z96.651 Presence of right artificial knee joint; Z96.612 Presence of left artificial shoulder joint; Z79.52 Long term (current) use of systemic steroids; Z79.899 Other long term (current) drug therapy; Z88.1 Allergy status to other antibiotic agents; Z88.6 Allergy status to analgesic agent; Z87.01 Personal history of pneumonia (recurrent); Z86.711 Personal history of pulmonary embolism; Z79.01 Long term (current) use of anticoagulants; Z94.0 Kidney transplant status; Z85.72 Personal history of non-Hodgkin lymphomas; G47.00 Insomnia, unspecified; Z20.822 Contact with and (suspected) exposure to COVID-19
CPT/HCPCS: 36415; 71046; 81001; 83880; 84443; 84484; 85610; 86140; 93005; 93010; 99285; 99285-25; A9270-GY; J1642; J1650; J2060; J3411; J7507; J7512; U0002

== ENCOUNTER 2021-09-01 19:21 | Emergency (ER) | payer BC, MEDICARE ==
[2021-09-01] MEDS ORDERED: Nitrofurantoin Monohydrate/Macrocrystalline 100 MG Cap PO ONE (19:22)
--- NOTE | 2021-09-01 19:28 | EDM.PDOC ---
ED HPI GENERAL MEDICAL PROBLEM - General Stated Complaint: URINARY ISSUES Time Seen by Provider: 09/01/21 19:28 Source of Information: Reports: Patient History Limitations: Reports: No Limitations - History of Present Illness INITIAL COMMENTS - FREE TEXT/NARRATIVE: Davidson complains of gross hematuria. This happened once tonight,without any dysuria,fever or abdominal pain. 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 He does not take any anticoagulants and no other bleeding tendencies.His past history includes ETOH abuse,NON Hodgkins Lymphoma, ITP - Related Data Allergies Allergy/AdvReac Type Severity Reaction Status Date / Time amoxicillin [Amoxicillin] AdvReac Diarrhea Verified 02/19/21 14:59 levofloxacin [From Levaquin] AdvReac Headache Verified 03/09/18 07:49 NSAIDS (Non-Steroidal AdvReac Cannot Verified 02/19/21 14:59 Anti-Inflamma Remember Home Meds: Home Meds Citalopram Hydrobromide [Celexa] 40 mg PO DAILY 08/18/13 [History] Metoprolol Tartrate [Lopressor] 100 mg PO BID 08/18/13 [History] Multivitamin [Multivitamins] 1 cap PO DAILY 08/18/13 [History] Zolpidem [Ambien] 10 mg PO BEDTIME PRN 08/18/13 [History] amLODIPine [Norvasc] 10 mg PO DAILY 08/18/13 [History] predniSONE [Prednisone] 5 mg PO DAILY 08/18/13 [History] Gabapentin [Neurontin] 600 mg PO TID 06/18/14 [History] Pantoprazole [ProTONIX] 40 mg PO DAILY 06/18/14 [History] Acetaminophen 650 mg PO Q4H PRN 04/10/15 [History] Albuterol Sulfate [Albuterol Sulfate HFA] 2 puff INH Q4H PRN 04/10/15 [History] Alendronate [Fosamax] 70 mg PO Q7D@0600 04/10/15 [History] Gemfibrozil 600 mg PO BIDAC 04/10/15 [History] Loperamide [Imodium] 4 mg PO TID PRN 04/10/15 [History] Simvastatin [Zocor] 10 mg PO BEDTIME 04/10/15 [History] Tacrolimus [Prograf] 1 mg PO BID 04/10/15 [History] cloNIDine [Catapres] 0.1 mg PO TID 01/15/18 [History] metroNIDAZOLE [Metrogel] 1 applic TP BID PRN 01/15/18 [History] Cholecalciferol (Vitamin D3) [Vitamin D3] 1,000 units PO DAILY 03/08/18 [History] Cyclobenzaprine [Flexeril] 10 mg PO BEDTIME 02/19/21 [History] Fluticasone Propionate [Flonase] 1 spray NASBOTH BID 02/19/21 [History] fluorouraciL [Efudex 5% Cream] 40 gm .XX ASDIRECTED 02/19/21 [History] LORazepam [Ativan] 1 mg PO Q4H PRN #30 tablet 02/21/21 [Rx] Terbinafine HCl [Lamisil] 250 mg PO DAILY 09/01/21 [History] Past Medical History HEENT History: Reports: Cataract, Impaired Vision Other HEENT History: wears contacts. CHRIONIC DRY EYES, BILATERAL CATARACT, ORBITAL LESION, PINGUECULA Cardiovascular History: Reports: Aneurysm, Arrhythmia, Blood Clots/VTE/DVT, High Cholesterol, Hypertension, Other (See Below) Other Cardiovascular History: ARTERITIS. 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 ELEVATED DIAPHRAM Other Gastrointestinal History: upper gi bleed bleeding ulcer while in [place] Genitourinary History: Reports: Renal Disease Other Genitourinary History: KIDNEY TRANSPLANT Musculoskeletal History: Reports: Arthritis, Back Pain, Chronic, Fracture, Other (See Below) Other Musculoskeletal History: partial knee in [place] 04/06/15 RIGHT. LUMBAR DEGENERATIVE DISK DISEASE Neurological History: Reports: Headaches, Chronic, Neuropathy, Peripheral Psychiatric History: Reports: Depression Hematologic History: Reports: Other (See Below) Other Hematologic History: port in left chest present since 2002 is flushed once a month port was not used for surgery. 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 Oncologic (Cancer) History: Reports: Non-Hodgkin's Lymphoma Other Oncologic History: 2008 in remission in - Past Surgical History Respiratory Surgical History: Reports: Thoracotomy Other Respiratory Surgeries/Procedures: BROCHOSCOPIES X4 GI Surgical History: Reports: Hernia Repair/Other Other GI Surgeries/Procedures: EXPLORATORY LAPAROTOMY 2006, 2002 AND 2004 HERNIORRAPHIES Other Male Surgeries/Procedures: kidney transplant in 2002 Neurological Surgical History: Reports: Thoracic Spine Musculoskeletal Surgical History: Reports: Arthroscopic Knee, Knee Replacement, Shoulder Surgery, Other (See Below) Other Musculoskeletal Surgeries/Procedures:: 04/06/15/ pt had partial knee replacement done to right knee. LEFT KNEE ARTHROSCOPY 2008 RIGHT IN 2012. LEFT SHOULDER REPLACEMENT 2009. THROACIC VERTEBRAL FX 04/2012, BACK SURGERY 2005 Social & Family History - Family History Family Medical History: No Pertinent Family History - Caffeine Use Caffeine Use: Reports: None ED ROS GENERAL - Review of Systems Review Of Systems: Comprehensive ROS is negative, except as noted in HPI. ED EXAM, RENAL/ - Physical Exam Exam: See Below Exam Limited By: No Limitations General Appearance: Alert, WD/WN, No Apparent Distress Ears: Normal External Exam, Normal Canal, Hearing Grossly Normal, Normal TMs Nose: Normal Inspection, Normal Mucosa, No Blood Throat/Mouth: Normal Inspection, Normal Lips, Normal Teeth, Normal Gums, Normal Oropharynx, Normal Voice, No Airway Compromise Head: Atraumatic, Normocephalic Neck: Normal Inspection, Supple, Non-Tender, Full Range of Motion Respiratory/Chest: No Respiratory Distress, Lungs Clear, Normal Breath Sounds, No Accessory Muscle Use, Chest Non-Tender Cardiovascular: Normal Peripheral Pulses, Regular Rate, Rhythm, No Edema, No Gallop, No JVD, No Murmur, No Rub GI/Abdominal: Normal Bowel Sounds, Soft, Non-Tender, No Organomegaly, No Distention, No Abnormal Bruit, No Mass (Male) Exam: No Hernia, Normal Inspection, Normal Prostate, Circumcised Rectal (Males) Exam: Normal Exam, Normal Rectal Tone, Prostate Normal Back Exam: Normal Inspection, Full Range of Motion, NT Extremities: Normal Inspection, Normal Range of Motion, Non-Tender, Normal Capillary Refill, No Pedal Edema Neurological: Alert, Oriented, CN II-XII Intact, Normal Cognition, Normal Gait, Normal Reflexes, No Motor/Sensory Deficits Psychiatric: Normal Affect, Normal Mood Skin Exam: Warm, Dry, Intact, Normal Color, No Rash Lymphatic: No Adenopathy Course - Vital Signs Last Recorded V/S: Last Vital Signs Temp 97.8 F 09/01/21 19:32 Pulse 71 09/01/21 19:32 Resp 18 09/01/21 19:32 BP 147/78 H 09/01/21 19:32 Pulse Ox 93 L 09/01/21 19:32 - Orders/Labs/Meds Orders: Active Orders 24 hr Category Date Time Status LORazepam [Ativan] Med 09/01/21 20:16 Once 1 mg PO ONETIME ONE Labs: Laboratory Tests 09/01/21 09/01/21 09/01/21 Range/Units 19:45 19:45 19:45 WBC 4.5 (3.2-10.1) x10-3/uL RBC 4.43 (3.90-5.90) x10(6)uL Hgb 13.8 (12.9-17.7) g/dL Hct 40.5 (38.3-50.1) % MCV 91.3 (80.8-98.7) fL MCH 31.1 (27.0-33.3) pg MCHC 34.0 (28.7-35.3) g/dL RDW 14.0 (12.4-15.0) % Plt Count 186 (117-477) x10(3)uL MPV 7.0 (6.7-11.0) fL Neut % (Auto) 45.1 (40.3-71.8) % Lymph % (Auto) 42.0 (15.8-45.3) % Ross % (Auto) 10.7 (5.5-15.2) % Eos % (Auto) 1.7 (0.1-6.8) % Baso % (Auto) 0.5 (0.3-3.8) % Neut # (Auto) 2.0 (1.7-6.9) x10-3/uL Lymph # (Auto) 1.9 (0.5-4.5) x10-3/uL Ross # (Auto) 0.5 (0.0-1.2) x10-3/uL Eos # (Auto) 0.1 (0.0-0.6) x10-3/uL Baso # (Auto) 0.0 (0.0-0.3) x10-3/uL PT 10.0 (9.0-11.1) sec INR 0.93 L (1.00-1.24) Sodium 140 (135-145) mmol/L Potassium 4.7 D (3.5-5.3) mmol/L Chloride 104 D (100-110) mmol/L Carbon Dioxide 29 (21-32) mmol/L BUN 16 (7-18) mg/dL Creatinine 1.2 (0.70-1.30) mg/dL Est Cr Clr Drug Dosing 60.17 mL/min Estimated GFR (MDRD) > 60 (>60) BUN/Creatinine Ratio 13.3 (9-20) Glucose 156 H (80-116) mg/dL Calcium 8.5 L (8.6-10.2) mg/dL Urine Color (YELLOW) Urine Appearance (CLEAR) Urine pH (5.0-6.5) Ur Specific [place] (1.010-1.025) Urine Protein (NEGATIVE) mg/dL Urine Glucose (UA) (NORMAL) mg/dL Urine Ketones (NEGATIVE) mg/dL Urine Occult Blood (NEGATIVE) Urine Nitrite (NEGATIVE) Urine Bilirubin (NEGATIVE) Urine Urobilinogen (NEGATIVE) mg/dL Ur Leukocyte Esterase (NEGATIVE) Urine RBC (0-5) Urine WBC (0-5) Ur Squamous Epith Cells (NS,R,O) Urine Bacteria (NS) 09/01/21 Range/Units 19:53 WBC (3.2-10.1) x10-3/uL RBC (3.90-5.90) x10(6)uL Hgb (12.9-17.7) g/dL Hct (38.3-50.1) % MCV (80.8-98.7) fL MCH (27.0-33.3) pg MCHC (28.7-35.3) g/dL RDW (12.4-15.0) % Plt Count (117-477) x10(3)uL MPV (6.7-11.0) fL Neut % (Auto) (40.3-71.8) % Lymph % (Auto) (15.8-45.3) % Ross % (Auto) (5.5-15.2) % Eos % (Auto) (0.1-6.8) % Baso % (Auto) (0.3-3.8) % Neut # (Auto) (1.7-6.9) x10-3/uL Lymph # (Auto) (0.5-4.5) x10-3/uL Ross # (Auto) (0.0-1.2) x10-3/uL Eos # (Auto) (0.0-0.6) x10-3/uL Baso # (Auto) (0.0-0.3) x10-3/uL PT (9.0-11.1) sec INR (1.00-1.24) Sodium (135-145) mmol/L Potassium (3.5-5.3) mmol/L Chloride (100-110) mmol/L Carbon Dioxide (21-32) mmol/L BUN (7-18) mg/dL Creatinine (0.70-1.30) mg/dL Est Cr Clr Drug Dosing mL/min Estimated GFR (MDRD) (>60) BUN/Creatinine Ratio (9-20) Glucose (80-116) mg/dL Calcium (8.6-10.2) mg/dL Urine Color Red (YELLOW) Urine Appearance Slightly cloudy (CLEAR) Urine pH 6.0 (5.0-6.5) Ur Specific [place] 1.025 (1.010-1.025) Urine Protein 100 H (NEGATIVE) mg/dL Urine Glucose (UA) Normal (NORMAL) mg/dL Urine Ketones Negative (NEGATIVE) mg/dL Urine Occult Blood Large H (NEGATIVE) Urine Nitrite Negative (NEGATIVE) Urine Bilirubin Negative (NEGATIVE) Urine Urobilinogen 1 H (NEGATIVE) mg/dL Ur Leukocyte Esterase Negative (NEGATIVE) Urine RBC Packed H (0-5) Urine WBC 0-5 (0-5) Ur Squamous Epith Cells Rare (NS,R,O) Urine Bacteria Rare H (NS) Departure - Departure Time of Disposition: 20:17 Disposition: Home, Self-Care 01 Condition: Good Clinical Impression: Gross hematuria - Discharge Information Referrals: Rico Liz MD [Primary Care Provider] - Sepsis Event Note (ED) - Focused Exam Vital Signs: Vital Signs Temp Pulse Resp BP Pulse Ox 09/01/21 19:32 97.8 F 71 18 147/78 H 93 L - Problem List & Annotations (1) Gross hematuria SNOMED Code(s): 709801614 Code(s): R31.0 - GROSS HEMATURIA Status: Acute Current Visit: Yes - Problem List Review Problem List Initiated/Reviewed/Updated: Yes - My Orders Last 24 Hours: My Active Orders 09/01/21 20:16 LORazepam [Ativan] 1 mg PO ONETIME ONE - Assessment/Plan Last 24 Hours: My Active Orders 09/01/21 20:16 LORazepam [Ativan] 1 mg PO ONETIME ONE Plan: I gave him Lorazepam 1 mg PO to calm him . I then sent home Macrobid. Repeat UA at the office in 1 week.
[2021-09-01 19:34] VITALS: BP 147/78; PULSE 71
[2021-09-01] MEDS ORDERED: LORazepam 1 MG Tab PO ONE (20:16)
== END 2021-09-01 20:25 | disposition home or self-care (01) ==
LOC: FB.ED 19:21
DX: R31.0 Gross hematuria (principal); E78.00 Pure hypercholesterolemia, unspecified; I10 Essential (primary) hypertension; Z88.0 Allergy status to penicillin; Z88.1 Allergy status to other antibiotic agents; Z88.8 Allergy status to other drugs, medicaments and biological substances
CPT/HCPCS: 36415; 80048; 81001; 85025; 85610; 99283; A9270-GY

== ENCOUNTER 2022-01-04 20:15 | Emergency (ER) | payer MEDICARE, OTHER ==
[2022-01-04] MEDS ORDERED: Ondansetron 4 MG Tab.DIS PO STA (20:54)
[2022-01-04] MEDS ORDERED: traMADol 50 MG Tab PO STA (20:54)
[2022-01-04] MEDS ORDERED: Meclizine 25 MG Tab PO STA (20:54)
[2022-01-04 21:27] VITALS: PULSE 70
[2022-01-04] MEDS ORDERED: cloNIDine 0.1 MG Tab PO STA (22:05)
[2022-01-04] MEDS ORDERED: amLODIPine 5 MG Tab PO STA (22:05)
[2022-01-04] MEDS ORDERED: Morphine 4 MG/ML VIAL IM ONE (22:29)
[2022-01-04 23:18] VITALS: BP 141/89
== END 2022-01-04 23:00 | disposition home or self-care (01) ==
LOC: FB.ED 20:15
DX: R51.9 Headache, unspecified (principal); E78.00 Pure hypercholesterolemia, unspecified; I10 Essential (primary) hypertension; Z88.0 Allergy status to penicillin; Z88.1 Allergy status to other antibiotic agents; Z88.8 Allergy status to other drugs, medicaments and biological substances; Z72.0 Tobacco use
CPT/HCPCS: 36415; 70450; 71046; 80053; 81001; 84484; 85025; 85610; 85730; 93005; 93010; 96372; 99283; 99284; A9270; J2270; Q0162

== ENCOUNTER 2022-04-28 16:30 | Emergency (ER) | payer MEDICARE, OTHER ==
[2022-04-28] MEDS ORDERED: Cephalexin 250 MG Cap PO ONE (16:31)
[2022-04-28] MEDS ORDERED: Acetaminophen/HYDROcodone 325-5 MG Tab PO ONE (16:31)
[2022-04-28] MEDS: HYDROmorphone 2 MG/ML SDV IM ONE ×2 (16:57→17:50)
[2022-04-28] MEDS: Bacitracin Oint 1 GM U/D Packet TOP ONE (17:30)
[2022-04-28 22:56] VITALS: BP 164/93; PULSE 73
== END 2022-04-28 18:55 | disposition home or self-care (01) ==
LOC: FB.ED 16:30
DX: S68.115A Complete traumatic metacarpophalangeal amputation of left ring finger, initial encounter (principal); E78.00 Pure hypercholesterolemia, unspecified; I10 Essential (primary) hypertension; Z88.0 Allergy status to penicillin; Z88.1 Allergy status to other antibiotic agents; Z88.8 Allergy status to other drugs, medicaments and biological substances; Z79.899 Other long term (current) drug therapy; W27.0XXA Contact with workbench tool, initial encounter
CPT/HCPCS: 64450; 96372; 99281; 99282; A9270-GY; J1170

== ENCOUNTER 2023-04-02 16:21 | Emergency (ER) | payer MEDICARE, OTHER ==
[2023-04-02] MEDS ORDERED: Sodium Chloride 0.9% 10 ML Syringe FLUSH PRN (16:35)
[2023-04-02 17:03] LABS: BASOPHILS PERCENT AUTO 0.3 % (0.3-3.8); EOSINOPHILS PERCENT AUTO 0.3 % (0.1-6.8); HEMATOCRIT 41.7 % (38.3-50.1); HEMOGLOBIN 14.1 g/dL (12.9-17.7); LYMPHOCYTES ABSOLUTE AUTO 1.4 x10-3/uL (0.5-4.5); LYMPHOCYTES PERCENT AUTO 30.2 % (15.8-45.3); MEAN CORPUSCULAR HEMOGLOBIN 32.2 pg (27.0-33.3); MEAN CORPUSCULAR HGB CONC 33.7 g/dL (28.7-35.3); MEAN CORPUSCULAR VOLUME 95.4 fL (80.8-98.7); MEAN PLATELET VOLUME 7.5 fL (6.7-11.0); MONOCYTES ABSOLUTE AUTO 0.7 x10-3/uL (0.0-1.2); MONOCYTES PERCENT AUTO 14.3 % (5.5-15.2); NEUTROPHILS ABSOLUTE AUTO 2.6 x10-3/uL (1.7-6.9); NEUTROPHILS PERCENT AUTO 54.9 % (40.3-71.8); PLATELET COUNT,PLT 146 x10(3)uL (117-477); RED BLOOD CELL COUNT 4.37 x10(6)uL (3.90-5.90); RED CELL DISTRIBUTION WIDTH 14.7 % (12.4-15.0); WHITE BLOOD CELL COUNT,WBC 4.7 x10-3/uL (3.2-10.1)
[2023-04-02 17:14] LABS: BLOOD UREA NITROGEN,BUN 18 mg/dL (7-18); CALCIUM 8.8 mg/dL (8.6-10.2); CARBON DIOXIDE,CO2 27 mmol/L (21-32); CHLORIDE,CL 100 mmol/L (100-110); ESTIMATED GFR 83 mL/min (>60); GLUCOSE RANDOM 124 mg/dL (80-116); POTASSIUM,K 4.2 mmol/L (3.5-5.3); SODIUM,NA 137 mmol/L (135-145)
[2023-04-02 17:21] LABS: INR 0.96 (1.00-1.24); PROTHROMBIN TIME 9.9 sec (9.0-11.1); PTT,PARTIAL THROMBOPLSTIN TIME 25.9 SECONDS (24.4-33.2)
[2023-04-02 17:26] LABS: A/G RATIO 0.8; ALANINE AMINOTRANSFERASE,ALT 26 U/L (12-36); ALBUMIN 3.6 g/dL (3.2-4.6); ALKALINE PHOSPHATASE 56 IU/L (56-112); ASPARTATE AMNIOTRANSFERASE,AST 21 IU/L (5-25); BILIRUBIN TOTAL 0.5 mg/dL (0.1-1.3)
[2023-04-02] MEDS ORDERED: Iopamidol 755 Mg/ML 100 ML Bottle IV ONE (17:48)
[2023-04-02] MEDS ORDERED: LORazepam 2 MG/ML SDV IVPUSH ONE (17:54)
[2023-04-02 18:23] VITALS: PULSE 69
[2023-04-02 18:24] VITALS: BP 159/101
== END 2023-04-02 18:35 ==
LOC: FB.ED 16:21
DX: I63.9 Cerebral infarction, unspecified (principal); C85.90 Non-Hodgkin lymphoma, unspecified, unspecified site; F10.10 Alcohol abuse, uncomplicated; E78.5 Hyperlipidemia, unspecified; R51.9 Headache, unspecified; R94.31 Abnormal electrocardiogram [ECG] [EKG]; E78.00 Pure hypercholesterolemia, unspecified; I10 Essential (primary) hypertension; Z88.0 Allergy status to penicillin; Z88.1 Allergy status to other antibiotic agents; Z88.8 Allergy status to other drugs, medicaments and biological substances; Z79.899 Other long term (current) drug therapy; Z94.0 Kidney transplant status; Y90.0 Blood alcohol level of less than 20 mg/100 ml
CPT/HCPCS: 36415; 36556; 70450; 70496; 70498; 71045; 80053; 80307; 84484; 85025; 85610; 85730; 93005; 96374; 99285; J2060; J3490; Q9967

== ENCOUNTER 2023-08-21 18:58 | Emergency (ER) | payer MEDICARE ==
[2023-08-21] MEDS ORDERED: Acetaminophen/HYDROcodone 325-5 MG Tab PO ONE (19:33)
[2023-08-21 20:09] LABS: BASOPHILS PERCENT AUTO 0.3 % (0.3-3.8); EOSINOPHILS PERCENT AUTO 0.6 % (0.1-6.8); HEMATOCRIT 45.3 % (38.3-50.1); HEMOGLOBIN 15.4 g/dL (12.9-17.7); LYMPHOCYTES ABSOLUTE AUTO 1.9 x10-3/uL (0.5-4.5); LYMPHOCYTES PERCENT AUTO 26.3 % (15.8-45.3); MEAN CORPUSCULAR HEMOGLOBIN 31.7 pg (27.0-33.3); MEAN CORPUSCULAR VOLUME 93.3 fL (80.8-98.7); MEAN PLATELET VOLUME 7.5 fL (6.7-11.0); MONOCYTES ABSOLUTE AUTO 0.7 x10-3/uL (0.0-1.2); MONOCYTES PERCENT AUTO 9.9 % (5.5-15.2); NEUTROPHILS ABSOLUTE AUTO 4.6 x10-3/uL (1.7-6.9); NEUTROPHILS PERCENT AUTO 62.9 % (40.3-71.8); PLATELET COUNT,PLT 168 x10(3)uL (117-477); RED BLOOD CELL COUNT 4.86 x10(6)uL (3.90-5.90); RED CELL DISTRIBUTION WIDTH 14.6 % (12.4-15.0); WHITE BLOOD CELL COUNT,WBC 7.4 x10-3/uL (3.2-10.1)
[2023-08-21 20:13] LABS: BLOOD UREA NITROGEN,BUN 14 mg/dL (7-18); CALCIUM 9.5 mg/dL (8.6-10.2); CARBON DIOXIDE,CO2 30 mmol/L (21-32); CHLORIDE,CL 96 mmol/L (100-110); ESTIMATED GFR 83 mL/min (>60); GLUCOSE RANDOM 101 mg/dL (80-116); POTASSIUM,K 4.3 mmol/L (3.5-5.3); SODIUM,NA 134 mmol/L (135-145)
[2023-08-21] MEDS ORDERED: Ondansetron 4 MG Tab.DIS PO ONE (20:53)
[2023-08-21] MEDS ORDERED: Acetaminophen/oxyCODONE 325-5 MG Tab PO PRN (22:56)
[2023-08-22 07:45] VITALS: BP 153/86; PULSE 65
== END 2023-08-21 21:20 | disposition home or self-care (01) ==
LOC: FB.ED 18:58
DX: I10 Essential (primary) hypertension (principal); R11.0 Nausea; E78.00 Pure hypercholesterolemia, unspecified; K21.9 Gastro-esophageal reflux disease without esophagitis; M19.90 Unspecified osteoarthritis, unspecified site; E66.9 Obesity, unspecified; Z68.32 Body mass index [BMI] 32.0-32.9, adult; Z86.16 Personal history of COVID-19; Z79.01 Long term (current) use of anticoagulants; Z79.899 Other long term (current) drug therapy; Z88.0 Allergy status to penicillin; Z88.1 Allergy status to other antibiotic agents; Z88.6 Allergy status to analgesic agent; Z79.84 Long term (current) use of oral hypoglycemic drugs
CPT/HCPCS: 36415; 80048; 85025; 93005; 93010; 99283; 99285; A9270-GY; Q0162

== ENCOUNTER 2023-11-19 14:03 | Emergency (ER) | payer MEDICARE ==
[2023-11-19 14:41] VITALS: PULSE 109
[2023-11-19] MEDS: Labetalol 20 MG/4 ML Syringe IVPUSH ONE (15:24)
[2023-11-19] MEDS: LORazepam 2 MG/ML SDV IVPUSH ONE (15:24)
[2023-11-19] MEDS: Sodium Chloride 0.9% 10 ML Syringe FLUSH PRN (15:25)
[2023-11-19 15:35] LABS: BASOPHILS PERCENT AUTO 0.2 % (0.3-3.8); EOSINOPHILS PERCENT AUTO 0.4 % (0.1-6.8); HEMATOCRIT 42.8 % (38.3-50.1); HEMOGLOBIN 14.4 g/dL (12.9-17.7); LYMPHOCYTES ABSOLUTE AUTO 1.2 x10-3/uL (0.5-4.5); LYMPHOCYTES PERCENT AUTO 19.4 % (15.8-45.3); MEAN CORPUSCULAR HGB CONC 33.7 g/dL (28.7-35.3); MEAN CORPUSCULAR VOLUME 95.2 fL (80.8-98.7); MEAN PLATELET VOLUME 7.5 fL (6.7-11.0); MONOCYTES ABSOLUTE AUTO 0.5 x10-3/uL (0.0-1.2); MONOCYTES PERCENT AUTO 8.6 % (5.5-15.2); NEUTROPHILS ABSOLUTE AUTO 4.6 x10-3/uL (1.7-6.9); NEUTROPHILS PERCENT AUTO 71.4 % (40.3-71.8); PLATELET COUNT,PLT 163 x10(3)uL (117-477); RED CELL DISTRIBUTION WIDTH 14.1 % (12.4-15.0); WHITE BLOOD CELL COUNT,WBC 6.4 x10-3/uL (3.2-10.1)
[2023-11-19 15:41] LABS: BLOOD UREA NITROGEN,BUN 13 mg/dL (7-18); BUN/CREATININE RATIO 11.8 (9-20); CALCIUM 9.2 mg/dL (8.6-10.2); CARBON DIOXIDE,CO2 30 mmol/L (21-32); CHLORIDE,CL 99 mmol/L (100-110); CREATININE 1.1 mg/dL (0.70-1.30); EST CRCL DRUG DOSING (CG) 63.91 mL/min; ESTIMATED GFR 74 mL/min (>60); GLUCOSE RANDOM 106 mg/dL (80-116); SODIUM,NA 138 mmol/L (135-145)
[2023-11-19 15:47] LABS: A/G RATIO 0.9; ALANINE AMINOTRANSFERASE,ALT 26 U/L (12-36); ALBUMIN 3.3 g/dL (3.2-4.6); ALKALINE PHOSPHATASE 59 IU/L (56-112); ASPARTATE AMNIOTRANSFERASE,AST 17 IU/L (5-25); BILIRUBIN TOTAL 0.6 mg/dL (0.1-1.3); PROTEIN TOTAL,TP 7.1 g/dL (6.0-8.0)
[2023-11-19 15:53] LABS: TROPONIN I 19.2 pg/mL (4.0-60.3)
[2023-11-19 16:01] LABS: INR 0.97 (1.00-1.24); PROTHROMBIN TIME 10.1 sec (9.0-11.1); PTT,PARTIAL THROMBOPLSTIN TIME 26.1 SECONDS (24.4-33.2)
[2023-11-19 16:14] LABS: INFLUENZA A NAA NEGATIVE (NEGATIVE); INFLUENZA B NAA NEGATIVE (NEGATIVE)
[2023-11-19 16:16] LABS: CORONAVIRUS COVID-19 NAA NEGATIVE (NEGATIVE)
[2023-11-19] MEDS ORDERED: Sodium Chloride 0.9% 10 ML Syringe FLUSH PRN (16:16)
[2023-11-19] MEDS: Iopamidol 755 Mg/ML 100 ML Bottle IV SCH (18:19)
[2023-11-19] MEDS: Sodium Chloride 0.9% 1,000 ML IV SCH (18:52)
[2023-11-19] MEDS: hydrALAZINE 20 MG/ML SDV IVPUSH STA (19:49)
[2023-11-19 22:52] VITALS: BP 158/100
== END 2023-11-19 20:37 | disposition home or self-care (01) ==
LOC: FB.ED 14:03
DX: I10 Essential (primary) hypertension (principal); J43.9 Emphysema, unspecified; F41.9 Anxiety disorder, unspecified; E78.00 Pure hypercholesterolemia, unspecified; K21.9 Gastro-esophageal reflux disease without esophagitis; Z86.16 Personal history of COVID-19; Z79.899 Other long term (current) drug therapy; Z88.0 Allergy status to penicillin; Z88.1 Allergy status to other antibiotic agents; Z88.8 Allergy status to other drugs, medicaments and biological substances; Z87.891 Personal history of nicotine dependence
CPT/HCPCS: 0240U; 71045; 71275; 80053; 83880; 84484; 85025; 85379; 85610; 85730; 93005; 96374; 96375; 99285; J0360; J1642; J1920; J2060; J3490; J7030; Q9967; 93010; 99284

== ENCOUNTER 2023-12-06 17:26 | Emergency (ER) | payer MEDICARE ==
[2023-12-06] MEDS: Albuterol/Ipratropium 3.0-0.5 MG/3 ML Neb Soln NEB ONE (18:51)
[2023-12-06 18:56] LABS: BASOPHILS PERCENT AUTO 0.5 % (0.3-3.8); EOSINOPHILS PERCENT AUTO 0.9 % (0.1-6.8); HEMATOCRIT 43.6 % (38.3-50.1); LYMPHOCYTES ABSOLUTE AUTO 1.7 x10-3/uL (0.5-4.5); LYMPHOCYTES PERCENT AUTO 29.2 % (15.8-45.3); MEAN CORPUSCULAR HEMOGLOBIN 32.3 pg (27.0-33.3); MEAN CORPUSCULAR HGB CONC 34.3 g/dL (28.7-35.3); MEAN CORPUSCULAR VOLUME 94.3 fL (80.8-98.7); MEAN PLATELET VOLUME 7.6 fL (6.7-11.0); MONOCYTES ABSOLUTE AUTO 0.7 x10-3/uL (0.0-1.2); MONOCYTES PERCENT AUTO 12.9 % (5.5-15.2); NEUTROPHILS ABSOLUTE AUTO 3.2 x10-3/uL (1.7-6.9); NEUTROPHILS PERCENT AUTO 56.5 % (40.3-71.8); PLATELET COUNT,PLT 157 x10(3)uL (117-477); RED BLOOD CELL COUNT 4.63 x10(6)uL (3.90-5.90); RED CELL DISTRIBUTION WIDTH 13.5 % (12.4-15.0); WHITE BLOOD CELL COUNT,WBC 5.7 x10-3/uL (3.2-10.1)
[2023-12-06 18:58] LABS: BLOOD UREA NITROGEN,BUN 14 mg/dL (7-18); BUN/CREATININE RATIO 15.6 (9-20); CALCIUM 8.3 mg/dL (8.6-10.2); CARBON DIOXIDE,CO2 27 mmol/L (21-32); CHLORIDE,CL 101 mmol/L (100-110); CREATININE 0.9 mg/dL (0.70-1.30); EST CRCL DRUG DOSING (CG) 77.06 mL/min; ESTIMATED GFR 94 mL/min (>60); GLUCOSE RANDOM 127 mg/dL (80-116); POTASSIUM,K 3.3 mmol/L (3.5-5.3); SODIUM,NA 138 mmol/L (135-145)
[2023-12-06 19:03] LABS: BASE EXCESS VENOUS,POC 2 mmol/L (-2 - 3+); PCO2 VENOUS,POC 33 mmHg (41-51); PH VENOUS,POC 7.47 pH Units (7.32-7.43)
[2023-12-06 19:04] LABS: A/G RATIO 0.9; ALANINE AMINOTRANSFERASE,ALT 37 U/L (12-36); ALBUMIN 3.4 g/dL (3.2-4.6); ALKALINE PHOSPHATASE 57 IU/L (56-112); ASPARTATE AMNIOTRANSFERASE,AST 27 IU/L (5-25); BILIRUBIN TOTAL 0.7 mg/dL (0.1-1.3); PROTEIN TOTAL,TP 7.4 g/dL (6.0-8.0)
[2023-12-06 19:13] LABS: C-REACTIVE PROTEIN 0.97 mg/dL (<0.50)
[2023-12-06] MEDS: Magnesium Sulfate/Water 2 GM in Premix Bag 1 BAG IV ONE (19:20)
[2023-12-06] MEDS: Potassium Chloride 20 MEQ Tab.ER PO ONE (19:20)
[2023-12-06 19:34] LABS: CORONAVIRUS COVID-19 NAA NEGATIVE (NEGATIVE); INFLUENZA A NAA NEGATIVE (NEGATIVE); INFLUENZA B NAA NEGATIVE (NEGATIVE); RESPIRATORY SYNCYTIAL VIR NAA NEGATIVE (NEGATIVE)
[2023-12-06 20:33] LABS: BILIRUBIN,URINE NEGATIVE (NEGATIVE); GLUCOSE,URINE NORMAL (NORMAL); KETONES,URINE NEGATIVE (NEGATIVE); LEUKOCYTE ESTERASE,URINE NEGATIVE (NEGATIVE); NITRITE,URINE NEGATIVE (NEGATIVE); OCCULT BLOOD,URINE MODERATE (NEGATIVE); PROTEIN,URINE 30 mg/dL (NEGATIVE); UROBILINOGEN,URINE NORMAL (NEGATIVE)
[2023-12-06 20:36] LABS: APPEARANCE,URINE CLEAR (CLEAR); BACTERIA,URINE OCCASIONAL (NS); COLOR,URINE YELLOW (YELLOW); RBC,URINE 0-5 (0-5); SQUAMOUS EPITHELIAL CELLS,UR RARE (NS,R,O); WBC,URINE 0-5 (0-5)
[2023-12-06] MEDS: Furosemide 20 MG Tab PO ONE (21:34)
[2023-12-06] MEDS: Azithromycin 500 MG Tab PO ONE (21:34)
[2023-12-06 22:37] VITALS: BP 150/91; PULSE 100
== END 2023-12-06 21:58 | disposition home or self-care (01) ==
LOC: FB.ED 17:26
DX: R60.0 Localized edema (principal); J44.1 Chronic obstructive pulmonary disease with (acute) exacerbation; R79.89 Other specified abnormal findings of blood chemistry; R06.02 Shortness of breath; E87.6 Hypokalemia; E83.42 Hypomagnesemia; E87.3 Alkalosis; E66.9 Obesity, unspecified; I10 Essential (primary) hypertension; E78.00 Pure hypercholesterolemia, unspecified; K21.9 Gastro-esophageal reflux disease without esophagitis; Z88.0 Allergy status to penicillin; Z88.8 Allergy status to other drugs, medicaments and biological substances; Z79.899 Other long term (current) drug therapy; Z86.16 Personal history of COVID-19; Z68.32 Body mass index [BMI] 32.0-32.9, adult
CPT/HCPCS: 0241U; 36415; 71046; 80053; 81001; 83605; 83735; 83880; 84484; 85025; 86140; 87040; 93005; 93010; 96365; 96366; 99284; 99285-25; A9270-GY; J1642; J3475; J7620

== ENCOUNTER 2024-09-18 13:50 | Emergency (ER) | payer MEDICARE ==
[2024-09-18 15:12] LABS: BASOPHILS PERCENT AUTO 0.2 % (0.3-3.8); EOSINOPHILS PERCENT AUTO 0.3 % (0.1-6.8); HEMATOCRIT 40.6 % (38.3-50.1); HEMOGLOBIN 14.2 g/dL (12.9-17.7); LYMPHOCYTES ABSOLUTE AUTO 1.1 x10-3/uL (0.5-4.5); MEAN CORPUSCULAR HEMOGLOBIN 31.7 pg (27.0-33.3); MEAN CORPUSCULAR VOLUME 90.6 fL (80.8-98.7); MEAN PLATELET VOLUME 7.8 fL (6.7-11.0); MONOCYTES ABSOLUTE AUTO 0.6 x10-3/uL (0.0-1.2); MONOCYTES PERCENT AUTO 12.6 % (5.5-15.2); NEUTROPHILS ABSOLUTE AUTO 3.1 x10-3/uL (1.7-6.9); NEUTROPHILS PERCENT AUTO 63.9 % (40.3-71.8); PLATELET COUNT,PLT 158 x10(3)uL (117-477); RED BLOOD CELL COUNT 4.48 x10(6)uL (3.90-5.90); RED CELL DISTRIBUTION WIDTH 13.3 % (12.4-15.0); WHITE BLOOD CELL COUNT,WBC 4.9 x10-3/uL (3.2-10.1)
[2024-09-18 15:13] LABS: BLOOD UREA NITROGEN,BUN 29 mg/dL (7-18); BUN/CREATININE RATIO 17.1 (9-20); CALCIUM 10.1 mg/dL (8.6-10.2); CARBON DIOXIDE,CO2 32 mmol/L (21-32); CHLORIDE,CL 91 mmol/L (100-110); CREATININE 1.7 mg/dL (0.70-1.30); ESTIMATED GFR 44 mL/min (>60); GLUCOSE RANDOM 121 mg/dL (80-116); POTASSIUM,K 3.8 mmol/L (3.5-5.3); SODIUM,NA 131 mmol/L (135-145)
[2024-09-18 15:20] LABS: ALANINE AMINOTRANSFERASE,ALT 39 U/L (12-36); ALBUMIN 3.5 g/dL (3.2-4.6); ALKALINE PHOSPHATASE 59 IU/L (56-112); ASPARTATE AMNIOTRANSFERASE,AST 22 IU/L (5-25); PROTEIN TOTAL,TP 7.1 g/dL (6.0-8.0)
[2024-09-18 15:43] LABS: INFLUENZA A NAA NEGATIVE (NEGATIVE); INFLUENZA B NAA NEGATIVE (NEGATIVE); RESPIRATORY SYNCYTIAL VIR NAA NEGATIVE (NEGATIVE)
[2024-09-18 15:44] LABS: CORONAVIRUS COVID-19 NAA NEGATIVE (NEGATIVE)
[2024-09-18] MEDS: Acetaminophen 500 MG Tab PO ONE (16:28)
[2024-09-18] MEDS: traMADol 50 MG Tab PO ONE (16:29)
[2024-09-18] MEDS: Ketorolac 30 MG/ML SDV IVPUSH ONE (16:30)
[2024-09-18] MEDS: Metoprolol Tartrate 5 MG/5 ML SDV IVPUSH ONE (16:38)
[2024-09-18 16:42] VITALS: BP 138/85; PULSE 102
[2024-09-18] MEDS: Ketorolac 30 MG/ML SDV IM ONE (17:47)
== END 2024-09-18 17:30 | disposition home or self-care (01) ==
LOC: FB.ED 13:50
DX: M54.50 Low back pain, unspecified (principal); I10 Essential (primary) hypertension; J44.9 Chronic obstructive pulmonary disease, unspecified; E66.9 Obesity, unspecified; Z86.16 Personal history of COVID-19; Z96.659 Presence of unspecified artificial knee joint; Z88.0 Allergy status to penicillin; Z88.6 Allergy status to analgesic agent; Z88.8 Allergy status to other drugs, medicaments and biological substances; Z79.52 Long term (current) use of systemic steroids; Z79.51 Long term (current) use of inhaled steroids; Z79.899 Other long term (current) drug therapy; W19.XXXA Unspecified fall, initial encounter
CPT/HCPCS: 0241U; 71045; 72100; 80053; 85025; 96374; 96375; 99285; A9270; J1642; J1885; J3490

== ENCOUNTER 2024-10-10 17:42 | Inpatient (IN) | payer MEDICARE ==
[2024-10-10] MEDS ORDERED: Sodium Chloride 0.9% 10 ML Syringe FLUSH PRN (17:54)
[2024-10-10 18:19] LABS: BASOPHILS PERCENT AUTO 0.3 % (0.3-3.8); EOSINOPHILS PERCENT AUTO 0.5 % (0.1-6.8); HEMATOCRIT 37.2 % (38.3-50.1); HEMOGLOBIN 12.9 g/dL (12.9-17.7); LYMPHOCYTES ABSOLUTE AUTO 0.7 x10-3/uL (0.5-4.5); LYMPHOCYTES PERCENT AUTO 8.4 % (15.8-45.3); MEAN CORPUSCULAR HEMOGLOBIN 32.4 pg (27.0-33.3); MEAN CORPUSCULAR HGB CONC 34.5 g/dL (28.7-35.3); MEAN CORPUSCULAR VOLUME 93.9 fL (80.8-98.7); MEAN PLATELET VOLUME 7.2 fL (6.7-11.0); MONOCYTES ABSOLUTE AUTO 0.9 x10-3/uL (0.0-1.2); MONOCYTES PERCENT AUTO 11.7 % (5.5-15.2); NEUTROPHILS ABSOLUTE AUTO 6.2 x10-3/uL (1.7-6.9); NEUTROPHILS PERCENT AUTO 79.1 % (40.3-71.8); PLATELET COUNT,PLT 122 x10(3)uL (117-477); RED BLOOD CELL COUNT 3.96 x10(6)uL (3.90-5.90); RED CELL DISTRIBUTION WIDTH 13.6 % (12.4-15.0); WHITE BLOOD CELL COUNT,WBC 7.8 x10-3/uL (3.2-10.1)
[2024-10-10] MEDS: Sodium Chloride 0.9% 1,000 ML IV ONE (18:20)
[2024-10-10 18:29] LABS: A/G RATIO 1.1; ALANINE AMINOTRANSFERASE,ALT 25 U/L (12-36); ALBUMIN 3.5 g/dL (3.2-4.6); ALKALINE PHOSPHATASE 72 IU/L (56-112); ASPARTATE AMNIOTRANSFERASE,AST 35 IU/L (5-25); BILIRUBIN TOTAL 1.4 mg/dL (0.1-1.3); BLOOD UREA NITROGEN,BUN 12 mg/dL (7-18); BUN/CREATININE RATIO 9.2 (9-20); CALCIUM 9.3 mg/dL (8.6-10.2); CARBON DIOXIDE,CO2 22 mmol/L (21-32); CHLORIDE,CL 90 mmol/L (100-110); CREATININE 1.3 mg/dL (0.70-1.30); ESTIMATED GFR 60 mL/min (>60); GLUCOSE RANDOM 110 mg/dL (80-116); POTASSIUM,K 4.2 mmol/L (3.5-5.3); PROTEIN TOTAL,TP 6.8 g/dL (6.0-8.0); SODIUM,NA 125 mmol/L (135-145)
[2024-10-10 18:32] LABS: LACTIC ACID 1.9 mmol/L (0.4-2.0)
[2024-10-10] MEDS: Morphine 2 MG/ML SYRINGE IVPUSH ONE (20:21)
[2024-10-10 20:30] LABS: BILIRUBIN,URINE NEGATIVE (NEGATIVE); GLUCOSE,URINE NORMAL (NORMAL); KETONES,URINE NEGATIVE (NEGATIVE); LEUKOCYTE ESTERASE,URINE NEGATIVE (NEGATIVE); NITRITE,URINE NEGATIVE (NEGATIVE); OCCULT BLOOD,URINE NEGATIVE (NEGATIVE); PROTEIN,URINE 100 mg/dL (NEGATIVE); UROBILINOGEN,URINE NORMAL (NEGATIVE)
[2024-10-10 20:37] LABS: APPEARANCE,URINE CLEAR (CLEAR); COLOR,URINE YELLOW (YELLOW)
[2024-10-10 20:38] LABS: BACTERIA,URINE FEW (NS); RBC,URINE 0-5 (0-5); SQUAMOUS EPITHELIAL CELLS,UR FEW (NS,R,O); WBC,URINE 0-5 (0-5)
[2024-10-10 21:40] LABS: BLOOD UREA NITROGEN,BUN 11 mg/dL (7-18); CALCIUM 8.1 mg/dL (8.6-10.2); CARBON DIOXIDE,CO2 24 mmol/L (21-32); CHLORIDE,CL 95 mmol/L (100-110); CREATININE 1.1 mg/dL (0.70-1.30); EST CRCL DRUG DOSING (CG) 63.05 mL/min; ESTIMATED GFR 74 mL/min (>60); GLUCOSE RANDOM 93 mg/dL (80-116); POTASSIUM,K 3.9 mmol/L (3.5-5.3); SODIUM,NA 129 mmol/L (135-145)
[2024-10-10] MEDS: Acetaminophen 500 MG Tab PO ONE (23:02)
[2024-10-10] MEDS: Non-Formulary Medication 1 Each (Tacrolimus [Prograf] 0.5 MG Cap) PO SCH (23:35)
[2024-10-11] MEDS: Tacrolimus 1 MG Cap PO SCH (01:32)
[2024-10-11 06:06] LABS: HEMOGLOBIN 11.8 g/dL (12.9-17.7); MEAN CORPUSCULAR HEMOGLOBIN 31.4 pg (27.0-33.3); MEAN CORPUSCULAR HGB CONC 33.7 g/dL (28.7-35.3); MEAN CORPUSCULAR VOLUME 93.4 fL (80.8-98.7); MEAN PLATELET VOLUME 7.4 fL (6.7-11.0); PLATELET COUNT,PLT 102 x10(3)uL (117-477); RED BLOOD CELL COUNT 3.75 x10(6)uL (3.90-5.90); RED CELL DISTRIBUTION WIDTH 13.4 % (12.4-15.0); WHITE BLOOD CELL COUNT,WBC 5.9 x10-3/uL (3.2-10.1)
[2024-10-11 06:19] LABS: A/G RATIO 0.9; ALANINE AMINOTRANSFERASE,ALT 24 U/L (12-36); ALKALINE PHOSPHATASE 62 IU/L (56-112); ASPARTATE AMNIOTRANSFERASE,AST 24 IU/L (5-25); BILIRUBIN TOTAL 1.3 mg/dL (0.1-1.3); BLOOD UREA NITROGEN,BUN 11 mg/dL (7-18); BUN/CREATININE RATIO 9.2 (9-20); CALCIUM 8.8 mg/dL (8.6-10.2); CARBON DIOXIDE,CO2 27 mmol/L (21-32); CHLORIDE,CL 95 mmol/L (100-110); CREATININE 1.2 mg/dL (0.70-1.30); EST CRCL DRUG DOSING (CG) 57.79 mL/min; ESTIMATED GFR 66 mL/min (>60); GLUCOSE RANDOM 94 mg/dL (80-116); PROTEIN TOTAL,TP 6.2 g/dL (6.0-8.0); SODIUM,NA 130 mmol/L (135-145)
[2024-10-11 07:01] LABS: EOSINOPHILS PERCENT MAN 2 % (0-5); LYMPHOCYTES PERCENT MAN 29 % (13-37); MONOCYTES PERCENT MAN 21 % (4-12); SEG NEUTROPHILS PERCENT MAN 48 % (46-82)
[2024-10-11 10:23] LABS: BASE EXCESS ARTERIAL,POC -1 mmol/L (-2 - 3+); HCO3 ARTERIAL,POC 22 mmol/L (21-28); O2 SATURATION ARTERIAL,POC 95.9 % (94-98); PO2 ARTERIAL,POC 74 mmHg (83-108)
[2024-10-11] MEDS: Tacrolimus 0.5 MG Cap PO SCH (13:08)
[2024-10-11 13:48] VITALS: BP 157/98; PULSE 98
[2024-10-11] MEDS ORDERED: Zolpidem 10 MG Tab PO PRN (13:56)
[2024-10-11] MEDS ORDERED: Loperamide 2 MG Cap PO PRN (13:56)
[2024-10-11] MEDS ORDERED: Cyclobenzaprine 10 MG Tab PO PRN (13:56)
[2024-10-11] MEDS ORDERED: Acetaminophen 325 MG Tab PO PRN (13:56)
[2024-10-11] MEDS ORDERED: Albuterol 6.7 GM Inhaler INH PRN (13:56)
[2024-10-11] MEDS ORDERED: Ketoconazole 2% Crm 30 GM Tube TOP PRN (14:00)
[2024-10-11] MEDS ORDERED: Carboxymethylcellulose Sodium 0.5% Ophth Soln 15 ML Bottle EYEBOTH PRN (14:12)
[2024-10-11] MEDS ORDERED: Acetaminophen 650 MG Supp RECTAL PRN (14:14)
[2024-10-11] MEDS: Iopamidol 755 Mg/ML 100 ML Bottle IV SCH (15:03)
[2024-10-11] MEDS: Sodium Chloride 0.9% 1,000 ML IV SCH (15:05)
[2024-10-11] MEDS: predniSONE 5 MG Tab PO SCH (15:07)
[2024-10-11] MEDS: traMADol 50 MG Tab PO PRN (15:07)
[2024-10-11] MEDS: Doxycycline 100 MG Tab PO SCH (15:07)
[2024-10-11] MEDS: Heparin Sodium 5,000 Units/ML Vial SUBCUT SCH (15:07)
[2024-10-11] MEDS: Heparin Sodium 5,000 Units/ML Vial IVPUSH ONE (16:06)
[2024-10-11] MEDS: Heparin Sodium/0.45% NaCl 25,000 UNITS/500 ML BAG IV SCH (16:06)
[2024-10-11] MEDS ORDERED: Calcium Carbonate 500 MG Tablet PO SCH (21:00)
[2024-10-11] MEDS ORDERED: Fluticasone NASAL Spray 16 GM Bottle NASBOTH SCH (21:00)
[2024-10-11] MEDS ORDERED: Betamethasone Dipropionate/Clotrimazole 0.05-1% Crm 15 GM Tube TOP PRN (21:00)
[2024-10-11] MEDS ORDERED: cloNIDine 0.1 MG Tab PO SCH (21:00)
[2024-10-11] MEDS ORDERED: busPIRone 15 MG Tab PO SCH (21:00)
[2024-10-12] MEDS ORDERED: Pantoprazole 40 MG Tab.CR PO SCH (06:00)
[2024-10-12] MEDS ORDERED: Metoprolol Tartrate 50 MG Tab PO SCH (09:00)
[2024-10-12] MEDS ORDERED: Potassium Chloride 20 MEQ Tab.ER PO SCH (09:00)
[2024-10-12] MEDS ORDERED: Citalopram 20 MG Tab PO SCH (09:00)
[2024-10-12] MEDS ORDERED: Multivitamins with Iron/Calcium/Folic Acid/Minerals Tab PO SCH (09:00)
[2024-10-12] MEDS ORDERED: Lisinopril 10 MG Tab PO SCH (09:00)
[2024-10-12] MEDS ORDERED: Tiotropium BR/Olodaterol HCL 4 GM Inhalation Spray 2.5mcg/1 dose; 10 doses INH SCH (09:00)
[2024-10-12] MEDS ORDERED: amLODIPine 5 MG Tab PO SCH (09:00)
[2024-10-13 03:51] LABS: CREATININE, URINE - PER VOLUME 99 mg/dL; HOURS COLLECTED Not Provided hr; SODIUM, URINE - PER VOLUME 59 mmol/L; TOTAL VOLUME Not Provided mL
[2024-10-13 17:15] LABS: OSMOLALITY 258 mOsm/kg (280-303)
[2024-10-13 17:15] LABS: URINE OSMOLALITY 287 mOsm/kg (50-800)
[2024-10-18] MEDS ORDERED: ALENDRONATE 70 MG PO SCH (06:00)
== END 2024-10-11 16:30 | DRG 176 ==
LOC: FB.ED 17:42 → FB.MS 10-11 11:30
PROVIDERS: ADMIT Internal Medicine; ATTEND Internal Medicine
DX: I11.0 Hypertensive heart disease with heart failure (principal); I50.9 Heart failure, unspecified; I26.94 Multiple subsegmental thrombotic pulmonary emboli without acute cor pulmonale; E87.1 Hypo-osmolality and hyponatremia; C85.90 Non-Hodgkin lymphoma, unspecified, unspecified site; D84.9 Immunodeficiency, unspecified; Z94.0 Kidney transplant status; I10 Essential (primary) hypertension; R29.6 Repeated falls; H54.7 Unspecified visual loss; E78.00 Pure hypercholesterolemia, unspecified; J44.9 Chronic obstructive pulmonary disease, unspecified; Z68.29 Body mass index [BMI] 29.0-29.9, adult; W19.XXXA Unspecified fall, initial encounter; K21.9 Gastro-esophageal reflux disease without esophagitis; M79.7 Fibromyalgia; M19.90 Unspecified osteoarthritis, unspecified site; G62.9 Polyneuropathy, unspecified; F32.A Depression, unspecified; E66.9 Obesity, unspecified; Z96.659 Presence of unspecified artificial knee joint; R79.89 Other specified abnormal findings of blood chemistry; Z88.0 Allergy status to penicillin; Z88.1 Allergy status to other antibiotic agents; Z88.8 Allergy status to other drugs, medicaments and biological substances; Z79.51 Long term (current) use of inhaled steroids; Z79.899 Other long term (current) drug therapy; Z86.711 Personal history of pulmonary embolism; Z87.01 Personal history of pneumonia (recurrent); Z87.81 Personal history of (healed) traumatic fracture; Z68.25 Body mass index [BMI] 25.0-25.9, adult; Z86.16 Personal history of COVID-19; Z98.49 Cataract extraction status, unspecified eye; Z98.890 Other specified postprocedural states
CPT/HCPCS: 36415; 70450; 71045; 71275; 80048; 80053; 81001; 82803; 83605; 83880; 83930; 83935; 84300; 84484; 85025; 85730; 86140; 87040; 87428-QW; 93005; 93010; 93306; 96361; 96374; 99222; 99238; 99284; 99285-25; A9270-GY; C1758; J1644; J2270; J7030; J7507; J7512; Q9967